=== PATIENT | female | born 1940 | race Caucasian/White ===

== ENCOUNTER 2016-09-25 18:43 | Emergency (ER) | payer MEDICARE ==
[~2016-09-25] VITALS: Ht 165.1 cm; Wt 96.4 kg
[~2016-09-25 18:43] MED LIST: ACET500T3 PO; ALLO100T PO; BETH25 PO; DOCU100T9 PO; HYDR-3516 PO; INLYTA PO; LISI-519 PO; NOVO7030P2 SQ; OXYB5TAB10 PO; PANT40TA3 PO; PROM25TA5 PO; VENTAER INH; VERA1TAB9 PO
[2016-09-25] MEDS ORDERED: N7030SS SQ ×2 (18:56)
[2016-09-25 18:57] VITALS: BP 166/81; PULSE 90; RESP 18; TEMP 98.4; O2SAT 97
[2016-09-25] MEDS ORDERED: ACETAMINOPHEN/HYDROcodone 325 MG/5 MG TAB PO ONE (19:15)
[2016-09-25] MEDS ORDERED: SODIUM CHLORIDE 0.9% FLUSH 5 ML FLUSH IVF PRN (19:15)
[2016-09-25] MEDS ORDERED: HYDR-3533 PO (20:47)
--- NOTE | 2016-09-25 20:48 | PD ---
HPI Chief Complaint: Fall Time Seen by Provider: 18:58 Travel History International Travel<30 days: No Contact w/Intl Traveler<30days: No Traveled to known affect area: No History of Present Illness HPI 76-year-old female arrives by EMS. She experienced a mechanical fall while walking up a concrete stairway. She landed striking her right face, right ribs and left knee onto the stairway. No loss of consciousness reported. She has constant moderate pain in the right face in the region of the right ribs. Both are more painful with palpation. The patient was unable stand after falling and cried out for help. She denies loss of consciousness. She denies anticoagulant use. Injury occurred about 45 minutes prior to ER evaluation. PFSH Past Medical History Hx Anticoagulant Therapy: No Arthritis: No Asthma: No Autoimmune Disease: No Blood Disorders: No Anxiety: No Depression: No Heart Rhythm Problems: No Cancer: Yes (SKIN CANCER , kidney cancer, and spots on the lungs now) Cardiovascular Problems: Yes High Cholesterol: No Chemotherapy: Yes (oral tablets ) Chest Pain: No Congestive Heart Failure: No COPD: No Cerebrovascular Accident: No Diabetes: Yes Patient Takes Glucophage: No Diminished Hearing: No Endocrine: Yes Gastrointestinal Disorders: Yes (colostomy placed 2014 ) GERD: No Glaucoma: No Genitourinary: Yes (left kidney removed 2014, ) Headaches: Yes (SINUS HEADACHE) Hepatitis: No Hiatal Hernia: No Hypertension: Yes Immune Disorder: No Implanted Vascular Access Dvce: Yes Kidney Stones: No Medical other: Yes (PSORIASIS & ECZEMA ) Musculoskeletal: Yes (right shoulder pain ) Neurologic: No Psychiatric: No Reproductive: No Respiratory: No Immunizations Current: Yes Migraines: No Myocardial Infarction: No Radiation Therapy: No Renal Failure: No Seizures: No Sickle Cell Disease: No Sleep Apnea: No Thyroid Disease: No Ulcer: No Menopausal: Yes Tubal Ligation: Yes Past Surgical History Abdominal Surgery: Yes (colostomy MAY 2015, hernia repair) AICD: No Appendectomy: Yes (1970) Arteriovenous Shunt: No Body Medical Devices: NONE Cardiac Surgery: Yes (TUMOR EXCISED RIGHT CAROTID ARTERY REMV'D & LYMPH NODES @ AGE 47 ) Cholecystectomy: No Ear Surgery: No Endocrine Surgery: No Eye Surgery: No Genitourinary Surgery: Yes (L NEPHRECTOMY) Gynecologic Surgery: Yes (tubal ligation ) Hysterectomy: No Insulin Pump: No Joint Replacement: No Neurologic Surgery: No Oral Surgery: Yes (dentures ) Pacemaker: No Thoracic Surgery: Yes (LEFT BREAST BX NOV 2014 BENIGN) Other Surgery: Yes (BENIGN breast cyst, hernia repain, kidney left removed, colostomy) Social History Alcohol Use: No Tobacco Use: No Substance Use: No Allergies-Medications (Allergen,Severity, Reaction): Coded Allergies: Adhesives (Verified Allergy, Severe, Rash, 09/20/16) OK TO USE PAPER TAPE Latex (Verified Allergy, Severe, Itching, 09/20/16) Sulfa (Verified Allergy, Severe, Nausea/Vomiting, 09/20/16) Penicillin (Verified Allergy, Unknown, Hives, 09/20/16) *MDRO Multi-Drug Resistant Organism (Verified Adverse Reaction, Unknown, ) MRSA (urine) 05/2015 ESBL+E.Coli urine 11/2015 & 06/10/16 Reported Meds & Prescriptions Reported Meds & Active Scripts Active Lortab (Hydrocodone-Acetaminophen) 5-325 Mg Tab 1-2 Tab PO Q6H PRN Ditropan (Oxybutynin Chloride) 5 Mg Tab 5 Mg PO Q12HR Hydrocodone-Acetaminophen 5-325 mg Tab 1 Tab PO Q4H PRN Urecholine (Bethanechol Chloride) 25 Mg Tab 25 Mg PO Q8HR Pantoprazole (Pantoprazole Sodium) 40 Mg Tab 40 Mg PO DAILY Phenergan (Promethazine HCl) 25 Mg Tab 25 Mg PO Q6HR PRN Reported Novolin 70/30 Inj (Insulin Human Isoph/Insulin Regular) 1,000 Units/10 Ml Inj 62 Units SQ DAILY@1600 Novolin 70/30 Inj (Insulin Human Isoph/Insulin Regular) 1,000 Units/10 Ml Inj 60 Units SQ DAILYAC [inlyta] 5 Mg PO BID Ventolin Hfa 18 GM Inh (Albuterol Sulfate) 90 Mcg/Act Aer 2 Puff INH Q4-6H PRN Lisinopril 5 Mg Tab 5 Mg PO DAILY Verapamil ER (Verapamil HCl) 120 Mg Tab 240 Mg PO DAILY Docusate Sodium 100 Mg Tab 100 Mg PO DAILY Allopurinol 100 Mg Tab 100 Mg PO DAILY Acetaminophen 500 Mg Tab 500 Mg PO BID Review of Systems Except as stated in HPI: all other systems reviewed are Neg Physical Exam Narrative GENERAL: 76 yo F, pleasant, WNWD, moderate distress SKIN: Warm and dry. HEAD: Atraumatic. Normocephalic. R face swelling/ecchymosis/TTP. EYES: Pupils equal and round. No scleral icterus. No injection or drainage. ENT: No nasal bleeding or discharge. Mucous membranes pink and moist. NECK: Trachea midline. No JVD. CARDIOVASCULAR: Regular rate and rhythm. RESPIRATORY: No accessory muscle use. Clear to auscultation. Breath sounds equal bilaterally. Minimal TTP R chest wall. GASTROINTESTINAL: Abdomen soft, non-tender, nondistended. Hepatic and splenic margins not palpable. MUSCULOSKELETAL: Extremities without clubbing, cyanosis, or edema. No obvious deformities. Ecchymosis about L knee, flexion/extension normal. 2+ DP bilaterally. R wrist TTP without gross deformity. Minimal abrasion approx 2cm max diameter along R dorsal/radial forearm. NEUROLOGICAL: Awake and alert. No obvious cranial nerve deficits. Motor grossly within normal limits. Five out of 5 muscle strength in the arms and legs. Normal speech. PSYCHIATRIC: Appropriate mood and affect; insight and judgment normal. Data Data Last Documented VS Vital Signs Date Time Temp Pulse Resp B/P Pulse Ox O2 Delivery O2 Flow Rate FiO2 09/25/16 18:57 98.4 90 18 166/81 97 VS reviewed Orders Chest, Single Ap (09/25/16 19:09) Ct Brain W/O Iv Contrast(Rout) (09/25/16 19:09) Ct Facial Bones W/O Iv Cont (09/25/16 19:09) Iv Access Insert/Monitor (09/25/16 19:09) Ecg Monitoring (09/25/16 19:09) Oximetry (09/25/16 19:09) Oxygen Administration (09/25/16 19:09) Sodium Chloride 0.9% Flush (Ns Flush) (09/25/16 19:15) Knee, Complete (4vws) (09/25/16 19:09) Wrist, Complete (Siq7mlq) (09/25/16 19:09) ^ Wound Care (09/25/16 19:09) Acetamin-Hydrocod 325-5 Mg (Atkins 5-325 (09/25/16 19:15) Resp Incentive Spirometry (09/25/16 ) MDM Medical Decision Making Medical Screen Exam Complete: Yes Emergency Medical Condition: Yes Medical Record Reviewed: Yes Differential Diagnosis R wrist fx, L knee fx, ribs fx, facial bone fx, ich, skull fx Narrative Course Last Impressions Wrist X-Ray 09/25/161908 Signed Impressions: Service Date/Time: Sunday, September 25, 2016 20:10 - CONCLUSION: No acute abnormality is identified. Nikolas Loredo MD Maxillofacial CT 09/25/161908 Signed Impressions: Service Date/Time: Sunday, September 25, 2016 20:25 - CONCLUSION: 1. Focal soft-tissue swelling in the superficial right anterior cheek region. 2. No acute bony injury is seen. Nikolas Loredo MD Knee X-Ray 09/25/161908 Signed Impressions: Service Date/Time: Sunday, September 25, 2016 20:14 - CONCLUSION: No acute disease. Nikolas Loredo MD Head CT 09/25/161908 Signed Impressions: Service Date/Time: Sunday, September 25, 2016 20:25 - CONCLUSION: 1. 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 2. Nothing acute. Urban David MD Chest X-Ray 09/25/161908 Signed Impressions: Service Date/Time: Sunday, September 25, 2016 20:08 - CONCLUSION: 1. No acute abnormality is seen. 2. Bilateral lung masses are seen. Nikolas Loredo MD The patient is resting comfortably and feels better, is alert and in no distress. The patients results and examination findings were discussed. The repeat examination is unremarkable and benign. The history, exam, diagnostic testing, and current condition do not suggest any significant pathology to warrant further testing, continued ED treatment, admission, or surgical evaluation at this point. The vital signs have been stable. The patient does not have uncontrollable pain, intractable vomiting, or other significant symptoms. The patient's condition is stable and appropriate for discharge. The patient will pursue further outpatient evaluation with a primary care physician or other designated or consulting physician as indicated in the discharge instructions. The patient expressed understanding and was agreeable with this plan. Diagnosis Primary Impression: Fall Qualified Code: W19.XXXA - Fall, initial encounter Additional Impressions: Facial contusion Qualified Code: S00.83XA - Facial contusion, initial encounter Contusion of wrist, right Contusion of knee, left ABRASION OF RIGHT WRIST, INITIAL ENCOUNTER Referrals: Remy Cano MD 2 days Additional Instructions: You have a choice when it comes to health care, and we are glad that you chose [facility]. Hopefully, we have met your expectations on today's visit. You are welcome to return to [facility] at any time, as we are committed to meeting the health care needs of our community. Med/Other Pt SpecificInfo: Prescription(s) given Scripts Hydrocodone-Acetaminophen (Lortab)5-325 Mg Tab1-2 Tab PO Q6H PRN (PAIN SCALE 6 TO 10) #20 TAB Ref 0 Prov:Jv Weems MD 09/25/16 Disposition: 01 DISCHARGE HOME Condition: Stable Jv Weems MD Sep 25, 2016 20:47
--- NOTE | 2016-09-25 21:02 | RADRPT ---
EXAM DATE/TIME: 09/25/2016 20:08 [facility] COMPARISON: CT NEEDLE BIOPSY LUNG, LEFT, June 21, 2016, 17:52. CHEST SINGLE AP, Decem 2015, 5:41. INDICATIONS : Patient fell today. Right axillary pain. MEDICAL HISTORY : None. SURGICAL HISTORY : None. ENCOUNTER: Initial ACUITY: 1 day PAIN SCORE: 10/10 LOCATION: Chest FINDINGS: The heart size is enlarged. The lungs are free of focal consolidation. There is a possible mass see n in the right upper lung. There also appears to be a mass in the superomedial left upper lung. The patient has had a lung biopsy on the left side performed in the past. CONCLUSION: 1. No acute abnormality is seen. 2. Bilateral lung masses are seen. Nikolas Loredo MD on September 25, 2016 at 20:56 Board Certified Radiologist. This report was verified electronically.
--- NOTE | 2016-09-25 21:08 | RADRPT ---
EXAM DATE/TIME: 09/25/2016 20:25 [facility] COMPARISON: No previous studies available for comparison. INDICATIONS : Trauma; fall. RADIATION DOSE: 35.64 CTDIvol (mGy) MEDICAL HISTORY : Hypertension. Diabetes mellitus type 2. renal CA. SURGICAL HISTORY : Nephrectomy, left. sinus surgery ENCOUNTER: Initial ACUITY: 1 day PAIN SCALE: 7/10 LOCATION: cranial TECHNIQUE: Multiple contiguous axial images were obtained of the head. Using automated exposure control and adj ustment of the mA and/or kV according to patient size, radiation dose was kept as low as reasonably a chievable to obtain optimal diagnostic quality images. FINDINGS: CEREBRUM: The ventricles are normal for age. Periventricular and deep white matter tract areas of diminished a ttenuation are characteristic of moderate to severe small vessel ischemic examination. No evidence of midline shift, mass lesion, hemorrhage or acute infarction. No extra-axial fluid collections are se en. POSTERIOR FOSSA: The cerebellum and brainstem are intact. The 4th ventricle is midline. The cerebellopontine angle i s unremarkable. EXTRACRANIAL: The visualized portion of the orbits is intact. Findings of prior sinus surgery SKULL: The calvaria is intact. No evidence of skull fracture. CONCLUSION: 1. 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 2. Nothing acute. Urban David MD on September 25, 2016 at 21:04 Board Certified Radiologist. This report was verified electronically.
--- NOTE | 2016-09-25 21:11 | RADRPT ---
EXAM DATE/TIME: 09/25/2016 20:14 [facility] COMPARISON: No previous studies available for comparison. INDICATIONS : Patient fell today and complains of left knee pain. Left knee laceration in area of patella. MEDICAL HISTORY : None. SURGICAL HISTORY : None. ENCOUNTER: Initial ACUITY: 1 day PAIN SCORE: 10/10 LOCATION: Left Knee FINDINGS: Four view examination of the left knee demonstrates no evidence of fracture or dislocation. The deep cular surfaces are intact. The suprapatellar soft tissues have a normal configuration. The bones are osteopenic. CONCLUSION: No acute disease. Nikolas Loredo MD on September 25, 2016 at 21:09 Board Certified Radiologist. This report was verified electronically.
--- NOTE | 2016-09-25 21:13 | RADRPT ---
EXAM DATE/TIME: 09/25/2016 20:10 [facility] COMPARISON: No previous studies available for comparison. INDICATIONS : Patient fell today and complains or right wrist pain. Laceration to carpal area. MEDICAL HISTORY : None. SURGICAL HISTORY : None. ENCOUNTER: Initial ACUITY: 1 day PAIN SCORE: 10/10 LOCATION: Right wrist FINDINGS: The bones are osteopenic. A definite fracture is not clearly identified. There appears to be some h ypertrophic change at the 3rd metacarpal head. The bones appear somewhat osteopenic. A foreign body is not seen. CONCLUSION: No acute abnormality is identified. Nikolas Loredo MD on September 25, 2016 at 21:04 Board Certified Radiologist. This report was verified electronically.
--- NOTE | 2016-09-25 21:17 | RADRPT ---
EXAM DATE/TIME: 09/25/2016 20:25 [facility] COMPARISON: No previous studies available for comparison. INDICATIONS : Trauma; fall. Right side cheek swelling and bruising. RADIATION DOSE: 59.80 CTDIvol (mGy) MEDICAL HISTORY : Hypertension. Diabetes mellitus type 2. Renal CA SURGICAL HISTORY : Nephrectomy, left. Sinus surgery ENCOUNTER: Initial ACUITY: 1 day PAIN SCORE: 7/10 LOCATION: Right facial TECHNIQUE: Volumetric scanning of the facial bones was performed. Using automated exposure contr ol and adjustment of the mA and/or kV according to patient size, radiation dose was kept as low as re asonably achievable to obtain optimal diagnostic quality images. FINDINGS: No acute fracture is seen. The patient does appear to have postsurgical change in the medial superio r aspects of the maxillary sinuses bilaterally. There has also been removal of the middle turbinates . The orbits appear intact. There is focal soft-tissue swelling identified at the right anterior ch deering measuring 2.2 x 1.3 x 1.8 cm. CONCLUSION: 1. Focal soft-tissue swelling in the superficial right anterior cheek region. 2. No acute bony injury is seen. Nikolas Loredo MD on September 25, 2016 at 21:02 Board Certified Radiologist. This report was verified electronically.
== END 2016-09-25 22:23 | disposition home or self-care (01) ==
LOC: NEPE 18:43
DX: S00.83XA Contusion of other part of head, initial encounter (principal); S60.211A Contusion of right wrist, initial encounter; S80.02XA Contusion of left knee, initial encounter; S60.811A Abrasion of right wrist, initial encounter; R07.81 Pleurodynia; E11.9 Type 2 diabetes mellitus without complications; I10 Essential (primary) hypertension; W10.8XXA Fall (on) (from) other stairs and steps, initial encounter; Z79.4 Long term (current) use of insulin; Z86.79 Personal history of other diseases of the circulatory system; Z87.19 Personal history of other diseases of the digestive system; Z87.448 Personal history of other diseases of urinary system; Z87.2 Personal history of diseases of the skin and subcutaneous tissue; Z87.39 Personal history of other diseases of the musculoskeletal system and connective tissue; Z85.828 Personal history of other malignant neoplasm of skin; Z85.528 Personal history of other malignant neoplasm of kidney
CPT/HCPCS: 70450; 70486; 71010; 73110; 73564; 94150

== ENCOUNTER 2016-09-28 22:34 | Emergency (ER) | payer MEDICARE ==
[~2016-09-28 22:34] MED LIST changes: +HYDR-3533 PO; +N7030SS SQ; -NOVO7030P2 SQ
[2016-09-28 22:36] VITALS: BP 166/83; PULSE 107; RESP 18; TEMP 97.8; O2SAT 97
== END 2016-09-28 23:40 | disposition left against medical advice (07) ==
LOC: NED 22:34
DX: R68.89 Other general symptoms and signs (principal)
CPT/HCPCS: 99281

== ENCOUNTER 2016-10-04 13:24 | Inpatient (IN) | payer MEDICARE ==
[~2016-10-04] VITALS: Ht 165.1 cm; Wt 97.1 kg
[~2016-10-04 13:24] MED LIST changes: -HYDR-3533 PO; -PROM25TA5 PO
[2016-10-12] MEDS ORDERED: BETH25 PO (09:10)
[2016-10-12] MEDS ORDERED: CRANCAP2 PO (09:10)
[2016-10-12] MEDS ORDERED: MACR100C3 PO (09:10)
[2016-10-12] MEDS ORDERED: CYCL1TAB29 PO (09:10)
[2016-10-12] MEDS ORDERED: LOSA50TA PO (09:10)
[2016-10-19] MEDS: D5-NS + KCL 20 MEQ INJ 1,000 ML IV SCH ×2 (00:15→17:47)
[2016-10-19] MEDS ORDERED: NEOSTIGMINE 3 MG/3 ML SYR IV ONE (12:00)
[2016-10-19] MEDS ORDERED: ONDANSETRON HCL 4 MG/2 ML VIAL IV PUSH ONE (12:00)
[2016-10-19] MEDS ORDERED: PROPOFOL 200 MG/20 ML AMP IV ONE (12:00)
[2016-10-19 12:36] VITALS: BP 152/77; PULSE 91; RESP 18; TEMP 98.9; O2SAT 99
[2016-10-19] MEDS ORDERED: BUPIVACAINE HCL PF 0.5% 30 ML VIAL ONE (12:49)
[2016-10-19] MEDS ORDERED: ceFAZolin INJ 1,000 MG VIAL ONE (13:00)
[2016-10-19] MEDS ORDERED: ALVIMOPAN 12 MG CAPSULE ONE (13:00)
[2016-10-19] MEDS ORDERED: LACTATED RINGER'S 1000 ML INJ 1,000 ML ONE (13:00)
[2016-10-19] MEDS ORDERED: metroNIDAZOLE 500 MG INJ 100 ML IV ONE (13:00)
[2016-10-19] MEDS ORDERED: SODIUM CHLORIDE 0.9% INJ 100 ML ONE (13:00)
[2016-10-19] MEDS ORDERED: METRONIDAZOLE 500 MG/100 ML ISONTONIC SOLN IV SCH (13:15)
[2016-10-19] MEDS ORDERED: ALVIMOPAN 12 MG CAPSULE - On Call PO SCH (13:15)
[2016-10-19] MEDS ORDERED: DEXT 5%-NACL 0.9% 1000 ML INJ 1,000 ML IV SCH (13:15)
[2016-10-19] MEDS ORDERED: LACTATED RINGER'S 1000 ML IV SCH (13:15)
[2016-10-19] MEDS ORDERED: METOPROLOL TARTRATE 25 MG TAB PO PRN (13:15)
[2016-10-19] MEDS ORDERED: SODIUM CHLORID 0.9% 500 ML IV SCH (13:15)
[2016-10-19] MEDS ORDERED: ceFAZolin 1,000 MG/NS 100 ML IV SCH ×2 (13:15)
[2016-10-19] MEDS ORDERED: INSULIN HUMAN REGULAR 1,000 UNITS/10 ML VIAL SQ PRN (13:15)
[2016-10-19 13:24] LABS: BACTERIA, URINE MANY /hpf; BLOOD, URINE MOD (NEG); GLUCOSE,URINE NEG (NEG); KETONE, URINE 10 mg/dL (NEG); MUCUS URINE FEW /lpf (OCC); PH, URINE 5.5 (5.0-8.5); SQUAMOUS EPITHELIAL CELL URINE 3 /hpf (0-5); TRANSITIONAL EPI CELLS, URINE <1 /hpf; URINE COLOR YELLOW (YELLW/STRAW)
[2016-10-19 13:25] LABS: COMMENT (UR) CULTURE INDICATED; CULTURE IF INDICATED CULTURE INDICATED; NITRITE,URINE POS (NEG)
--- NOTE | 2016-10-19 13:32 | PD.HP.UP ---
H&P Update Note The Pre-Admit History and Physical Examination regarding the above named patient was reviewed (including, but not limited to, vital signs, heart, lungs, co-morbid conditions), and upon re-examination it is noted that: the patient's condition has not significantly changed since the last examination. Alen Parikh MD Oct 19, 2016 13:32
[2016-10-19] MEDS ORDERED: MIDAZOLAM HCL 2 MG/2 ML VIAL ONE (14:00)
[2016-10-19] MEDS ORDERED: methylPREDNISolone SOD SUCC 125 MG/2 ML VIAL ONE (14:00)
[2016-10-19] MEDS ORDERED: ACETAMINOPHEN 1000 MG/100 ML VIAL IV ONE (14:04)
[2016-10-19] MEDS ORDERED: FAMOTIDINE 20 MG/2 ML VIAL ONE (14:04)
[2016-10-19] MEDS ORDERED: fentaNYL CITRATE 250 MCG/5 ML AMP ONE ×2 (14:05→16:40)
[2016-10-19] MEDS ORDERED: ONDANSETRON HCL 4 MG/2 ML VIAL ONE (14:05)
--- NOTE | 2016-10-19 15:11 | PD.OP ---
Operative Report Colovesical fistula Postoperative Diagnosis: Colovesical fistula Procedure: Cystoscopy with placement of right ureteral catheter Anesthesia: Gen. endotracheal tube Surgeon: Fito León Endoscopy Tech(s): None Operation and Findings: And she needs 75 year-old female with history of diverticular disease who developed a colovesical fistula. She also underwent a left nephrectomy and assisted for left renal cell carcinoma. She scheduled to undergo exploratory laparotomy and closure of colovesical fistula. Request for made by Dr. Parikh for placement of right ureteral catheter and cystoscopy. Patient was brought to the operating room and identified by myself as Rosalie French. She was prepped and draped in usual sterile fashion, received preprocedure antibiotics, general endotracheal tube anesthesia was administered. 22 Chadian cystoscope was inserted in the bladder. Mccullough cystoscopy showed a lot of debris within the bladder. The right ureteral orifice was identified and a 5 Chadian open-ended catheter was inserted into the right ureteral orifice. Initially, the open- ended catheter would not advance. An 035 sensor wire was then passed through the open-ended catheter up into the kidney. The catheter was advanced over the wire and putting good position. Alexander catheter was inserted and the 5 Chadian opening catheter was secured to the Alexander catheter. She tolerated procedure well. Fito León DO Oct 19, 2016 15:11
[2016-10-19] MEDS ORDERED: SODIUM CHLORIDE 0.9% FLUSH 5 ML FLUSH IVF PRN (16:30)
[2016-10-19] MEDS ORDERED: ALBUTEROL SULFATE 90 MCG/ACT HFA 8 GM INHALER INH PRN (16:30)
[2016-10-19] MEDS ORDERED: BENZOCAINE 6 MG/MENTHOL 10 MG LOZENGE SUCK-ON PRN (16:30)
[2016-10-19] MEDS: PCA - TOTAL MG MORPHINE DELIVERED PER SHIFT SCH ×2 (16:30)
[2016-10-19] MEDS ORDERED: POTASSIUM CHLOR 40 MEQ PREMIX 100 ML IV PRN (16:30)
[2016-10-19] MEDS ORDERED: ENALAPRILAT 2.5 MG/2 ML VIAL IV PRN (16:30)
[2016-10-19] MEDS ORDERED: ACETAMINOPHEN/HYDROcodone 325 MG/5 MG TAB PO PRN (16:30)
[2016-10-19] MEDS ORDERED: POTASSIUM CHLOR 20 MEQ PREMIX 100 ML IV PRN (16:30)
[2016-10-19] MEDS ORDERED: ENALAPRILAT 1.25 MG/ML VIAL IV PRN (16:30)
[2016-10-19] MEDS ORDERED: NALOXONE HCL 0.4 MG/ML AMP IV PRN (16:30)
[2016-10-19] MEDS ORDERED: KETOROLAC TROMETHAMINE 30 MG/ML (IVP) VIAL IVP PRN (16:30)
[2016-10-19] MEDS ORDERED: Post-op Orders (for Pharmacy) MISC XX ONE (16:30)
[2016-10-19] MEDS ORDERED: *morphine SULFATE 8 MG/ML PERIprocedure ONLY ONE ×2 (16:35→16:46)
[2016-10-19] MEDS ORDERED: MORPHINE SULFATE 4 MG/ML INJ ONE (16:40)
[2016-10-19] MEDS ORDERED: *HYDROmorphone PF 1 MG VIAL PERIprocedural Use ONLY ONE ×4 (16:50→18:59)
[2016-10-19] MEDS ORDERED: DO NOT ADM ANY ANTICOAGULANT DRUGS XX PRN (17:15)
[2016-10-19] MEDS: PANTOPRAZOLE SODIUM 40 MG VIAL IVP SCH (17:37)
[2016-10-19] MEDS: MORPHINE SULFATE 30 MG/30 ML PCA IV SCH (17:47)
[2016-10-19] MEDS ORDERED: *ONDANSETRON 4 MG VIAL PERIprocedural Use ONLY ONE (17:49)
[2016-10-19] MEDS: METOCLOPRAMIDE HCL 10 MG/2 ML VIAL IVS SCH (21:00)
[2016-10-19] MEDS ORDERED: INLYTA 5 MG PO SCH (21:00)
[2016-10-19] MEDS: BETHANECHOL CHL 25 MG TAB PO SCH (21:45)
[2016-10-19] MEDS: NITROFURANTOIN MONOHYD MACROCR 100 MG CAP PO SCH (21:45)
[2016-10-19] MEDS: OXYBUTYNIN CHLORIDE 5 MG TAB PO SCH (21:45)
[2016-10-19] MEDS: CYCLOBENZAPRINE HCL 10 MG TAB PO SCH (21:45)
[2016-10-19] MEDS: VERAPAMIL HCL 240 MG SUSTAINED RELEASE TAB PO SCH (21:45)
[2016-10-19] MEDS ORDERED: INSULIN HUMAN REGULAR 1,000 UNITS/10 ML VIAL ONE (21:50)
[2016-10-19] MEDS: MEDIUM DOSE INSULIN NOVOLIN REGULAR SUPPLEMENTAL SCALE SQ SCH (21:52)
[2016-10-19] MEDS: metroNIDAZOLE 500 MG INJ 100 ML IV SCH (22:07)
[2016-10-19] MEDS ORDERED: DEXTROSE 50% IN WATER 50 ML VIAL(D50) IV PUSH PRN (22:15)
[2016-10-19] MEDS ORDERED: GLUCAGON 1 MG/ML VIAL OTHER PRN (22:15)
[2016-10-19] MEDS: SODIUM CHLORIDE 0.9% FLUSH 5 ML FLUSH IVF SCH (22:30)
[2016-10-20] MEDS: D5-NS + KCL 20 MEQ INJ 1,000 ML IV SCH ×2 (00:19→06:27)
[2016-10-20 03:36] VITALS: O2SAT 98
[2016-10-20] MEDS: PCA - TOTAL MG MORPHINE DELIVERED PER SHIFT SCH ×2 (06:00→21:51)
[2016-10-20] MEDS: metroNIDAZOLE 500 MG INJ 100 ML IV SCH ×2 (06:00→14:18)
[2016-10-20] MEDS: MEDIUM DOSE INSULIN NOVOLIN REGULAR SUPPLEMENTAL SCALE SQ SCH ×4 (06:44→22:39)
[2016-10-20 07:31] LABS: AUTOMATED NEUTROPHIL # 7.4 TH/MM3 (1.8-7.7); BASOPHIL % 0.1 % (0.0-2.0); HEMATOCRIT 30.9 % (35.0-46.0); HEMO FLAGS DIFF FINAL; LYMPH % 3.6 % (9.0-44.0); LYMPHOCYTE # 0.4 TH/MM3 (1.0-4.8); MEAN CELL VOLUME 88.6 FL (80.0-100.0); MEAN CORPUSCULAR HEMOGLOBIN 27.4 PG (27.0-34.0); MEAN CORPUSCULAR HGB CONC 30.9 % (32.0-36.0); MONO % 19.5 % (0.0-8.0); NEUT % 76.8 % (16.0-70.0); PLATELET COUNT 149 TH/MM3 (150-450); RED BLOOD COUNT 3.49 MIL/MM3 (4.00-5.30); RED CELL DISTRIBUTION WIDTH 18.9 % (11.6-17.2); WHITE BLOOD COUNT 9.7 TH/MM3 (4.0-11.0)
[2016-10-20 07:52] LABS: BICARBONATE 22.7 MEQ/L (21.0-32.0); POTASSIUM 5.7 MEQ/L (3.5-5.1)
[2016-10-20] MEDS: PANTOPRAZOLE SODIUM 40 MG VIAL IVP SCH (08:33)
[2016-10-20] MEDS: METOCLOPRAMIDE HCL 10 MG/2 ML VIAL IVS SCH ×2 (08:54→21:38)
[2016-10-20 08:56] VITALS: O2SAT 99
[2016-10-20] MEDS: BETHANECHOL CHL 25 MG TAB PO SCH ×2 (09:00→21:38)
[2016-10-20] MEDS: ALLOPURINOL 100 MG TAB PO SCH (09:00)
[2016-10-20] MEDS: NITROFURANTOIN MONOHYD MACROCR 100 MG CAP PO SCH ×2 (09:00→21:38)
[2016-10-20] MEDS: ALVIMOPAN 12 MG CAPSULE - Post-op dosing PO SCH ×2 (09:00→21:38)
[2016-10-20] MEDS: OXYBUTYNIN CHLORIDE 5 MG TAB PO SCH ×2 (09:00→21:38)
[2016-10-20] MEDS: PANTOPRAZOLE SOD 40 MG DELAYED RELEASE TAB PO SCH (09:00)
[2016-10-20] MEDS: LOSARTAN 50 MG TAB PO SCH (09:00)
[2016-10-20] MEDS: CYCLOBENZAPRINE HCL 10 MG TAB PO SCH ×2 (09:00→21:38)
[2016-10-20] MEDS: DEXT 5%-NACL 0.9% 1000 ML INJ 1,000 ML IV SCH (09:29)
[2016-10-20] MEDS: SODIUM CHLORIDE 0.9% FLUSH 5 ML FLUSH IVF SCH ×2 (09:31→21:00)
[2016-10-20] MEDS: MORPHINE SULFATE 30 MG/30 ML PCA IV SCH (13:11)
[2016-10-20 18:00] VITALS: BP 133/55; PULSE 87; RESP 19; TEMP 97.7; O2SAT 93
[2016-10-20] MEDS: ONDANSETRON HCL 4 MG/2 ML VIAL IV PRN (18:51)
[2016-10-20 20:00] VITALS: BP 139/62; PULSE 91; RESP 20; TEMP 98.9; O2SAT 91
[2016-10-20] MEDS ORDERED: ALVIMOPAN 12 MG CAPSULE PO SCH (21:00)
[2016-10-20] MEDS: VERAPAMIL HCL 240 MG SUSTAINED RELEASE TAB PO SCH (21:00)
--- NOTE | 2016-10-20 23:06 | HHI.PR ---
Subjective Remarks C/R Surg POD # 1 afebriel, VSS UO fair stoma viable Objective - Vital Signs Date Time Temp Pulse Resp B/P Pulse Ox O2 Delivery O2 Flow Rate FiO2 10/20/16 21:51 16 10/20/16 20:00 98.9 91 139/62 91 10/20/16 17:40 Nasal Cannula 2 Result Diagram: 10/20/1617 10/20/16 0717 Objective Remarks PE alert Abd - soft, wound dry, stoma pink A/P Assessment and Plan Imp: stable, OOB decr IVF tx to floor Alen Parikh MD Oct 20, 2016 23:06
[2016-10-21] VITALS (7 sets, daily range): BP systolic 108–172; BP diastolic 53–66; PULSE 78–87; RESP 17–19; TEMP 96.7–99.6; O2SAT 85–100
[2016-10-21] MEDS: DEXT 5%-NACL 0.9% 1000 ML INJ 1,000 ML IV SCH (00:09)
[2016-10-21 05:45] LABS: AUTOMATED NEUTROPHIL # 5.2 TH/MM3 (1.8-7.7); BASOPHIL % 0.2 % (0.0-2.0); EOSINOPHIL % 0.2 % (0.0-4.0); HEMATOCRIT 27.8 % (35.0-46.0); HEMO FLAGS DIFF FINAL; LYMPH % 6.7 % (9.0-44.0); LYMPHOCYTE # 0.5 TH/MM3 (1.0-4.8); MEAN CORPUSCULAR HEMOGLOBIN 28.7 PG (27.0-34.0); MEAN CORPUSCULAR HGB CONC 32.6 % (32.0-36.0); MONO % 19.5 % (0.0-8.0); NEUT % 73.4 % (16.0-70.0); PLATELET COUNT 128 TH/MM3 (150-450); RED BLOOD COUNT 3.16 MIL/MM3 (4.00-5.30); WHITE BLOOD COUNT 7.1 TH/MM3 (4.0-11.0)
[2016-10-21] MEDS: ONDANSETRON HCL 4 MG/2 ML VIAL IV PRN (06:03)
[2016-10-21] MEDS: PCA - TOTAL MG MORPHINE DELIVERED PER SHIFT SCH ×3 (06:07→20:07)
[2016-10-21] MEDS: MEDIUM DOSE INSULIN NOVOLIN REGULAR SUPPLEMENTAL SCALE SQ SCH ×4 (06:16→20:19)
[2016-10-21 06:25] LABS: POTASSIUM 5.2 MEQ/L (3.5-5.1)
--- NOTE | 2016-10-21 07:34 | HHI.PR ---
Subjective Remarks C/R Surg POD # 2 afebrile, VSS UO good stoma viable JASON min Objective - Vital Signs Date Time Temp Pulse Resp B/P Pulse Ox O2 Delivery O2 Flow Rate FiO2 10/21/16 06:07 18 10/21/16 04:34 96.9 78 108/53 93 10/20/16 17:40 Nasal Cannula 2 Result Diagram: 10/21/16 0453 10/21/16 0453 Objective Remarks PE alert, c/o nausea Abd - soft, wound dry, stoma pink A/P Assessment and Plan Imp: stable, OOB/PT decr IVF leave Alen Garnica MD Oct 21, 2016 07:34
[2016-10-21] MEDS ORDERED: MISCELLANEOUS PHARMACY INFORMATION XX PRN (08:00)
[2016-10-21] MEDS ORDERED: ASP: Path resistant to other antimicrobials, culture proven XX PRN (08:00)
[2016-10-21] MEDS ORDERED: ASP: Documented allergy to Penicillins or Cephalosporins XX PRN (08:00)
[2016-10-21] MEDS: BETHANECHOL CHL 25 MG TAB PO SCH ×2 (08:35→20:11)
[2016-10-21] MEDS: ALLOPURINOL 100 MG TAB PO SCH (08:35)
[2016-10-21] MEDS: ALVIMOPAN 12 MG CAPSULE - Post-op dosing PO SCH ×2 (08:35→20:09)
[2016-10-21] MEDS: CYCLOBENZAPRINE HCL 10 MG TAB PO SCH ×2 (08:35→20:10)
[2016-10-21] MEDS: NITROFURANTOIN MONOHYD MACROCR 100 MG CAP PO SCH ×2 (08:35→20:12)
[2016-10-21] MEDS: PANTOPRAZOLE SOD 40 MG DELAYED RELEASE TAB PO SCH (08:35)
[2016-10-21] MEDS: OXYBUTYNIN CHLORIDE 5 MG TAB PO SCH ×2 (08:35→20:10)
[2016-10-21] MEDS: LOSARTAN 50 MG TAB PO SCH (08:35)
[2016-10-21] MEDS: PANTOPRAZOLE SODIUM 40 MG VIAL IVP SCH (08:35)
[2016-10-21] MEDS: SODIUM CHLORIDE 0.9% FLUSH 5 ML FLUSH IVF SCH ×2 (08:37→20:08)
[2016-10-21] MEDS: SODIUM CHLOR 0.45% 1000 ML INJ 1,000 ML IV SCH ×2 (08:44→20:06)
[2016-10-21] MEDS: ERTAPENEM INJ 1,000 MG in SODIUM CHLORIDE 0.9% INJ 100 ML IV SCH (09:03)
[2016-10-21 10:03] LABS: ALKALINE PHOSPHATASE 75 U/L (45-117); ALT (GPT) 8 U/L (10-53); ANION GAP 7 MEQ/L (5-15); AST (GOT) 14 U/L (15-37); BICARBONATE 23.1 MEQ/L (21.0-32.0); CHLORIDE 111 MEQ/L (98-107); GLOMERULAR FILTRATION RATE 34 ML/MIN (>89); POTASSIUM 5.1 MEQ/L (3.5-5.1); SODIUM (NA) 141 MEQ/L (136-145); TOTAL BILIRUBIN ADULT 0.4 MG/DL (0.2-1.0)
[2016-10-21 10:07] LABS: BLOOD UREA NITROGEN 18 MG/DL (7-18)
--- NOTE | 2016-10-21 11:38 | MP ---
cc: TAMIKA SINGH M.D. DATE OF SURGERY 10/19/2016 PREOPERATIVE DIAGNOSIS Colovesical fistula urosepsis PROCEDURE Exploratory laparotomy with proctosigmoidectomy and Rosemary pouch, omental flap. POSTOPERATIVE DIAGNOSIS 1. Colovesical fistula 2. Enterocutaneous fistula SURGEON Dr. Singh [employer] Dr. Anupam Mcnulty PROCEDURE The patient was placed in the spine position. After adequate general anesthesia, her legs were placed in the [place] stirrups and supported appropriately. The abdomen and perineum were then prepped with Betadine solution and draped in the usual sterile fashion. With Dr. Mcnulty's assistance, the abdomen was opened through a midline incision. Upon entering the abdominal cavity, adhesions to the parietal peritoneum were taken down. Exploration revealed a chronic inflammatory mass in the sigmoid colon which was stuck down to the left pelvic sidewall and the bladder. It also appeared to communicate with the lower part of the abdomen consistent with a colocutaneous fistula. Several loops of small bowel were stuck to the inflammatory mass. Two of these were gently teased off and mobilized. Further exploration revealed the proximal colon to be very dilated and full of stool all the around to the cecum. No obstruction was palpable. The small bowel was run from the ligament of Treitz down to the ileocecal valve and felt to be normal. The stomach and duodenum were normal. The liver had no palpable masses. Uterus and ovaries were appropriate for the patient's age. First, the sigmoid colon was mobilized medially by dividing along the white line of Toldt. The left ureter was visualized and preserved, although the left kidney had been previously taken. Dissection then proceeded up mobilizing the bowel to the diverting loop colostomy. The right retroperitoneal space was then opened and the bowel dissected off the presacral fascia. The right ureteral stent was carefully palpated and preserved. The pedicle for the superior hemorrhoidal vessels was then identified and divided between Milagros's obtaining hemostasis with Vicryl ties. The bowel was then mobilized off the presacral fascia. In the region of the fistula, the bowel was then divided, the inflammatory mass off the bladder dividing the fistula and the enterocutaneous fistulas well. A point in the proximal rectum was chosen and the mesorectum taken between electrocautery and Milagros clamps ligating the proximal ends with Vicryl ties. The bowel was then divided between a TA-60 stapler and a Saran clamp. The additional mesentery was taken up toward the colostomy and just distal to the loop colostomy, the bowel was divided again using the TA-60 stapler and a Saran clamp. The abdomen was then irrigated copiously with normal saline. Adequate hemostasis was achieved. The fistula to the bladder was curetted of chronic granulation tissue and a lot of fecal debris. The omentum was taken off the transverse colon and passed down the right gutter to fill the pelvis and fill the area of the fistula. Next, the area around the umbilical hernia was repaired reapproximating the fascia with a running 0-PDS suture. Similar parastomal hernia was closed with interrupted PDS sutures in a lateral to medial direction. At completion, the colostomy appeared to be patent and was viable. A Travis-Spaulding drain was placed down into the pelvis in the region of the fistula, brought up through a stab wound in the right lower quadrant and secured to the skin with a nylon suture. The midline incision was then closed anatomically using a #1 PDS suture to reapproximate the midline fascia. The subcutaneous tissues were irrigated copiously. In the area of the cutaneous fistula, the skin was debrided and the fascia cleansed of all inflammatory tissue. The upper pole of the incision was closed with a row of surgical janie. The lower pole was left open and packed with a damp saline soaked Kerlix gauze. The wound area washed with normal saline and dried, sterile dressing of Telfa and gauze applied. A new colostomy bag fitted over the previously formed colostomy. The patient tolerated the procedure quite well and was brought to recovery room in stable condition. The sponge and needle counts were correct at the end of the procedure. MD JULIO CESAR Tran/EL /9:31 AM /11:28 AM
[2016-10-21] MEDS: METOCLOPRAMIDE HCL 10 MG/2 ML VIAL IVS SCH ×2 (12:58→22:58)
[2016-10-21] MEDS: MORPHINE SULFATE 30 MG/30 ML PCA IV SCH (15:08)
[2016-10-21] MEDS: VERAPAMIL HCL 240 MG SUSTAINED RELEASE TAB PO SCH (20:11)
[2016-10-22] VITALS: BP 138/62; PULSE 75; RESP 19; TEMP 96; O2SAT 99
[2016-10-22] MEDS: MEDIUM DOSE INSULIN NOVOLIN REGULAR SUPPLEMENTAL SCALE SQ SCH ×4 (04:42→20:18)
[2016-10-22] MEDS: PCA - TOTAL MG MORPHINE DELIVERED PER SHIFT SCH ×3 (04:42→20:19)
[2016-10-22] MEDS: METOCLOPRAMIDE HCL 10 MG/2 ML VIAL IVS SCH ×3 (04:50→20:20)
[2016-10-22 08:00] VITALS: BP 124/64; PULSE 69; RESP 19; TEMP 96.3; O2SAT 97
[2016-10-22] MEDS: ERTAPENEM INJ 1,000 MG in SODIUM CHLORIDE 0.9% INJ 100 ML IV SCH (08:19)
[2016-10-22] MEDS: ALLOPURINOL 100 MG TAB PO SCH (08:20)
[2016-10-22] MEDS: ALVIMOPAN 12 MG CAPSULE - Post-op dosing PO SCH ×2 (08:20→20:18)
[2016-10-22] MEDS: CYCLOBENZAPRINE HCL 10 MG TAB PO SCH ×2 (08:20→20:18)
[2016-10-22] MEDS: BETHANECHOL CHL 25 MG TAB PO SCH ×2 (08:20→20:18)
[2016-10-22] MEDS: LOSARTAN 50 MG TAB PO SCH (08:20)
[2016-10-22] MEDS: SODIUM CHLORIDE 0.9% FLUSH 5 ML FLUSH IVF SCH ×2 (08:21→20:17)
[2016-10-22] MEDS: OXYBUTYNIN CHLORIDE 5 MG TAB PO SCH ×2 (08:25→20:18)
[2016-10-22] MEDS: NITROFURANTOIN MONOHYD MACROCR 100 MG CAP PO SCH ×2 (08:25→20:18)
[2016-10-22] MEDS: PANTOPRAZOLE SOD 40 MG DELAYED RELEASE TAB PO SCH (08:25)
[2016-10-22] MEDS: SODIUM CHLOR 0.45% 1000 ML INJ 1,000 ML IV SCH ×2 (08:26→20:20)
[2016-10-22] MEDS: PANTOPRAZOLE SODIUM 40 MG VIAL IVP SCH (08:26)
[2016-10-22 12:00] VITALS: BP 136/62; PULSE 78; RESP 16; TEMP 97.2; O2SAT 98
[2016-10-22 16:00] VITALS: BP 154/66; PULSE 86; RESP 22; TEMP 96.6; O2SAT 97
--- NOTE | 2016-10-22 17:08 | HHI.PR ---
Subjective Remarks C/R Surg POD # 3 afebrile, VSS UO good stoma viable, min function JASON min Objective - Vital Signs Date Time Temp Pulse Resp B/P Pulse Ox O2 Delivery O2 Flow Rate FiO2 10/22/16 16:00 96.6 86 22 154/66 97 10/21/16 12:08 21 10/20/16 17:40 Nasal Cannula 2 Result Diagram: 10/21/16 0453 10/21/16 0913 Objective Remarks PE alert, less nausea Abd - soft, wound dry, red around umbilicus, stoma pink A/P Assessment and Plan Imp: path - colon cancer, node neg, but fistula margin + stable, OOB/PT decr IVF leave huitron wound opened Alen Parikh MD Oct 22, 2016 17:08
[2016-10-22 20:00] VITALS: BP 135/61; PULSE 90; RESP 19; TEMP 97.8; O2SAT 92
[2016-10-22] MEDS: VERAPAMIL HCL 240 MG SUSTAINED RELEASE TAB PO SCH (20:18)
[2016-10-23] VITALS: BP 136/60; PULSE 83; RESP 19; TEMP 98.2; O2SAT 92
[2016-10-23] MEDS: MEDIUM DOSE INSULIN NOVOLIN REGULAR SUPPLEMENTAL SCALE SQ SCH ×4 (04:47→19:36)
[2016-10-23] MEDS: PCA - TOTAL MG MORPHINE DELIVERED PER SHIFT SCH (04:47)
[2016-10-23] MEDS: METOCLOPRAMIDE HCL 10 MG/2 ML VIAL IVS SCH ×3 (04:49→23:05)
[2016-10-23 08:00] VITALS: BP 122/61; PULSE 73; RESP 19; TEMP 96.9; O2SAT 98
[2016-10-23] MEDS: PANTOPRAZOLE SODIUM 40 MG VIAL IVP SCH (09:00)
[2016-10-23] MEDS: SODIUM CHLORIDE 0.9% FLUSH 5 ML FLUSH IVF SCH ×2 (09:00→19:33)
[2016-10-23] MEDS: ALVIMOPAN 12 MG CAPSULE - Post-op dosing PO SCH ×2 (09:13→19:33)
[2016-10-23] MEDS: CYCLOBENZAPRINE HCL 10 MG TAB PO SCH ×2 (09:14→19:33)
[2016-10-23] MEDS: BETHANECHOL CHL 25 MG TAB PO SCH ×2 (09:15→19:34)
[2016-10-23] MEDS: NITROFURANTOIN MONOHYD MACROCR 100 MG CAP PO SCH ×2 (09:15→19:34)
[2016-10-23] MEDS: LOSARTAN 50 MG TAB PO SCH (09:16)
[2016-10-23] MEDS: PANTOPRAZOLE SOD 40 MG DELAYED RELEASE TAB PO SCH (09:16)
[2016-10-23] MEDS: ALLOPURINOL 100 MG TAB PO SCH (09:16)
[2016-10-23] MEDS: OXYBUTYNIN CHLORIDE 5 MG TAB PO SCH ×2 (09:18→19:33)
[2016-10-23] MEDS: ERTAPENEM INJ 1,000 MG in SODIUM CHLORIDE 0.9% INJ 100 ML IV SCH (09:24)
[2016-10-23] MEDS: SODIUM CHLOR 0.45% 1000 ML INJ 1,000 ML IV SCH ×2 (09:27→23:05)
--- NOTE | 2016-10-23 10:56 | HHI.PR ---
Subjective Remarks C/R Surg POD # 4 afebrile, VSS UO good stoma viable, min function JASON min Objective - Vital Signs Date Time Temp Pulse Resp B/P Pulse Ox O2 Delivery O2 Flow Rate FiO2 10/23/16 08:00 96.9 73 19 122/61 98 10/21/16 12:08 21 10/20/16 17:40 Nasal Cannula 2 Result Diagram: 10/21/16 0453 10/21/16 0913 Objective Remarks PE alert, less nausea, to PO Abd - soft, wound opened, clean base A/P Assessment and Plan Imp: path - colon cancer, node neg, but fistula margin + stable, OOB/PT decr IVF leave huitron wound opened, local care irrigate stoma Alen Parikh MD Oct 23, 2016 10:56
[2016-10-23 11:30] LABS: AUTOMATED NEUTROPHIL # 2.4 TH/MM3 (1.8-7.7); BASOPHIL % 0.1 % (0.0-2.0); EOSINOPHIL # 0.1 TH/MM3 (0-0.4); EOSINOPHIL % 1.7 % (0.0-4.0); HEMATOCRIT 26.1 % (35.0-46.0); LYMPH % 12.8 % (9.0-44.0); LYMPHOCYTE # 0.5 TH/MM3 (1.0-4.8); MEAN CELL VOLUME 85.8 FL (80.0-100.0); MEAN CORPUSCULAR HEMOGLOBIN 27.5 PG (27.0-34.0); MEAN CORPUSCULAR HGB CONC 32.1 % (32.0-36.0); MONO % 18.4 % (0.0-8.0); PLATELET COUNT 128 TH/MM3 (150-450); RED BLOOD COUNT 3.05 MIL/MM3 (4.00-5.30); RED CELL DISTRIBUTION WIDTH 18.2 % (11.6-17.2); WHITE BLOOD COUNT 3.6 TH/MM3 (4.0-11.0)
[2016-10-23 11:33] LABS: HEMO FLAGS AUTO DIFF
[2016-10-23 12:00] VITALS: BP 142/63; PULSE 68; RESP 17; TEMP 97.4; O2SAT 93
[2016-10-23 12:06] LABS: BANDS 1 % (0-6); MYELOCYTES 1 % (0-0); NEUTROPHIL # MANUAL DIFF 2.4 TH/MM3 (1.8-7.7); POLYS (SEG NEUTROPHILS) 64 % (16-70); WBC DIFF SAMPLE 100
[2016-10-23 12:07] LABS: PLATELET ESTIMATE SMEAR LOW (NORMAL); PLATELET MORPHOLOGY NORMAL (NORMAL); SCAN/DIFF FINAL DIFF MANUAL
[2016-10-23 13:18] LABS: BACTERIA, URINE RARE /hpf; BLOOD, URINE SMALL (NEG); GLUCOSE,URINE NEG (NEG); KETONE, URINE NEG (NEG); MUCUS URINE FEW /lpf (OCC); NITRITE,URINE NEG (NEG); SQUAMOUS EPITHELIAL CELL URINE <1 /hpf (0-5); URINE COLOR YELLOW (YELLW/STRAW)
[2016-10-23 13:19] LABS: COMMENT (UR) CATH-CULTURE IND; CULTURE IF INDICATED CATH CULTURE IND
[2016-10-23 16:00] VITALS: BP 138/63; PULSE 70; RESP 20; TEMP 97.9; O2SAT 100
[2016-10-23] MEDS: ACETAMINOPHEN/HYDROcodone 325 MG/5 MG TAB PO PRN (17:00)
[2016-10-23] MEDS: VERAPAMIL HCL 240 MG SUSTAINED RELEASE TAB PO SCH (19:34)
[2016-10-23 20:00] VITALS: BP 159/70; PULSE 73; RESP 18; TEMP 96.9; O2SAT 99
[2016-10-24] VITALS: BP 138/62; PULSE 77; RESP 20; TEMP 97.4; O2SAT 96
[2016-10-24] MEDS: ACETAMINOPHEN/HYDROcodone 325 MG/5 MG TAB PO PRN ×2 (04:44→09:00)
[2016-10-24] MEDS: MEDIUM DOSE INSULIN NOVOLIN REGULAR SUPPLEMENTAL SCALE SQ SCH ×4 (04:44→21:00)
[2016-10-24] MEDS: METOCLOPRAMIDE HCL 10 MG/2 ML VIAL IVS SCH ×3 (04:44→21:30)
[2016-10-24 08:00] VITALS: BP 122/56; PULSE 70; RESP 16; TEMP 97.5; O2SAT 96
[2016-10-24] MEDS: PANTOPRAZOLE SOD 40 MG DELAYED RELEASE TAB PO SCH (08:57)
[2016-10-24] MEDS: ALVIMOPAN 12 MG CAPSULE - Post-op dosing PO SCH ×2 (08:58→21:29)
[2016-10-24] MEDS: CYCLOBENZAPRINE HCL 10 MG TAB PO SCH ×2 (08:58→21:30)
[2016-10-24] MEDS: NITROFURANTOIN MONOHYD MACROCR 100 MG CAP PO SCH ×2 (08:58→21:29)
[2016-10-24] MEDS: ALLOPURINOL 100 MG TAB PO SCH (08:59)
[2016-10-24] MEDS: OXYBUTYNIN CHLORIDE 5 MG TAB PO SCH ×2 (08:59→21:29)
[2016-10-24] MEDS: LOSARTAN 50 MG TAB PO SCH (08:59)
[2016-10-24] MEDS: SODIUM CHLORIDE 0.9% FLUSH 5 ML FLUSH IVF SCH ×2 (09:00→21:30)
[2016-10-24] MEDS: PANTOPRAZOLE SODIUM 40 MG VIAL IVP SCH (09:00)
[2016-10-24] MEDS: BETHANECHOL CHL 25 MG TAB PO SCH ×2 (09:00→21:30)
[2016-10-24] MEDS: ERTAPENEM INJ 1,000 MG in SODIUM CHLORIDE 0.9% INJ 100 ML IV SCH (09:02)
[2016-10-24 12:00] VITALS: BP 117/47; PULSE 74; RESP 17; TEMP 97.8; O2SAT 94
[2016-10-24] MEDS: POLYETHYLENE GLYCOL 17 GM PKG PO SCH (12:38)
[2016-10-24 16:00] VITALS: BP 134/61; PULSE 70; RESP 16; TEMP 97.1; O2SAT 92
[2016-10-24] MEDS: SODIUM CHLOR 0.45% 1000 ML INJ 1,000 ML IV SCH (18:22)
[2016-10-24 20:00] VITALS: BP 133/49; PULSE 80; RESP 20; TEMP 97.9; O2SAT 96
--- NOTE | 2016-10-24 20:48 | HHI.PR ---
Subjective Remarks C/R Surg POD afebrile, VSS UO good stoma viable, min function JASON min, dc'd Objective - Vital Signs Date Time Temp Pulse Resp B/P Pulse Ox O2 Delivery O2 Flow Rate FiO2 10/24/16 16:00 97.1 70 16 134/61 92 10/24/16 09:00 Nasal Cannula 3.00 10/21/16 12:08 21 Result Diagram: 10/23/16 1111 10/21/16 0913 Objective Remarks PE alert, jacky PO Abd - soft, wound opened, clean base stoma irrigated A/P Assessment and Plan Imp: stable, OOB/PT decr IVF leave huitron wound opened, local care irrigate stoma Alen Parikh MD Oct 24, 2016 20:48
[2016-10-24] MEDS: VERAPAMIL HCL 240 MG SUSTAINED RELEASE TAB PO SCH (21:30)
[2016-10-25] VITALS: BP 113/63; PULSE 68; RESP 20; TEMP 97.4; O2SAT 97
[2016-10-25] MEDS: SODIUM CHLOR 0.45% 1000 ML INJ 1,000 ML IV SCH ×2 (05:13→17:33)
[2016-10-25] MEDS: MEDIUM DOSE INSULIN NOVOLIN REGULAR SUPPLEMENTAL SCALE SQ SCH ×4 (05:13→21:00)
[2016-10-25] MEDS: METOCLOPRAMIDE HCL 10 MG/2 ML VIAL IVS SCH ×2 (05:13→14:56)
[2016-10-25 08:00] VITALS: BP 143/65; PULSE 71; RESP 17; TEMP 97.4; O2SAT 95
[2016-10-25] MEDS: PANTOPRAZOLE SODIUM 40 MG VIAL IVP SCH (09:00)
[2016-10-25] MEDS: NITROFURANTOIN MONOHYD MACROCR 100 MG CAP PO SCH ×2 (09:50→21:48)
[2016-10-25] MEDS: PANTOPRAZOLE SOD 40 MG DELAYED RELEASE TAB PO SCH (09:50)
[2016-10-25] MEDS: ALVIMOPAN 12 MG CAPSULE - Post-op dosing PO SCH ×2 (09:50→21:49)
[2016-10-25] MEDS: BETHANECHOL CHL 25 MG TAB PO SCH ×2 (09:50→21:49)
[2016-10-25] MEDS: POLYETHYLENE GLYCOL 17 GM PKG PO SCH (09:50)
[2016-10-25] MEDS: LOSARTAN 50 MG TAB PO SCH (09:50)
[2016-10-25] MEDS: OXYBUTYNIN CHLORIDE 5 MG TAB PO SCH ×2 (09:50→21:49)
[2016-10-25] MEDS: CYCLOBENZAPRINE HCL 10 MG TAB PO SCH ×2 (09:50→21:48)
[2016-10-25] MEDS: SODIUM CHLORIDE 0.9% FLUSH 5 ML FLUSH IVF SCH ×2 (09:51→21:00)
[2016-10-25] MEDS: ALLOPURINOL 100 MG TAB PO SCH (09:51)
[2016-10-25 12:00] VITALS: BP 122/41; PULSE 72; RESP 20; TEMP 98.4; O2SAT 95
[2016-10-25 16:00] VITALS: BP 137/62; PULSE 71; RESP 18; TEMP 98.2; O2SAT 95
[2016-10-25] MEDS: ACETAMINOPHEN/HYDROcodone 325 MG/5 MG TAB PO PRN (16:09)
[2016-10-25] MEDS ORDERED: METOCLOPRAMIDE HCL 10 MG/2 ML VIAL IVS PRN (16:45)
[2016-10-25 20:00] VITALS: BP 139/61; PULSE 73; RESP 18; TEMP 97.2; O2SAT 98
--- NOTE | 2016-10-25 20:13 | HHI.PR ---
Subjective Remarks C/R Surg POD afebrile, VSS UO good stoma viable, irrigated Objective - Vital Signs Date Time Temp Pulse Resp B/P Pulse Ox O2 Delivery O2 Flow Rate FiO2 10/25/16 16:00 98.2 71 18 137/62 95 10/24/16 22:32 Nasal Cannula 2.00 10/21/16 12:08 21 Result Diagram: 10/23/16 1111 10/21/16 0913 Objective Remarks PE alert, jacky PO Abd - soft, wound opened, clean base stoma little output A/P Assessment and Plan Imp: stable, OOB/PT decr IVF DC huitron in AM wound opened, local care irrigate stoma prn Alen Parikh MD Oct 25, 2016 20:13
[2016-10-25] MEDS: VERAPAMIL HCL 240 MG SUSTAINED RELEASE TAB PO SCH (21:49)
[2016-10-26] VITALS: BP 126/58; PULSE 75; RESP 16; TEMP 96; O2SAT 98
[2016-10-26] MEDS: SODIUM CHLOR 0.45% 1000 ML INJ 1,000 ML IV SCH (03:48)
[2016-10-26] MEDS: MEDIUM DOSE INSULIN NOVOLIN REGULAR SUPPLEMENTAL SCALE SQ SCH ×4 (07:00→20:46)
[2016-10-26 08:00] VITALS: BP 134/64; PULSE 69; RESP 18; TEMP 98; O2SAT 97
[2016-10-26] MEDS: BETHANECHOL CHL 25 MG TAB PO SCH ×2 (08:50→19:49)
[2016-10-26] MEDS: ALVIMOPAN 12 MG CAPSULE - Post-op dosing PO SCH ×2 (08:50→19:49)
[2016-10-26] MEDS: POLYETHYLENE GLYCOL 17 GM PKG PO SCH (08:50)
[2016-10-26] MEDS: OXYBUTYNIN CHLORIDE 5 MG TAB PO SCH ×2 (08:50→19:49)
[2016-10-26] MEDS: CYCLOBENZAPRINE HCL 10 MG TAB PO SCH ×2 (08:50→19:49)
[2016-10-26] MEDS: PANTOPRAZOLE SOD 40 MG DELAYED RELEASE TAB PO SCH (08:50)
[2016-10-26] MEDS: NITROFURANTOIN MONOHYD MACROCR 100 MG CAP PO SCH ×2 (08:50→19:49)
[2016-10-26] MEDS: LOSARTAN 50 MG TAB PO SCH (08:50)
[2016-10-26] MEDS: ALLOPURINOL 100 MG TAB PO SCH (08:50)
[2016-10-26] MEDS: PANTOPRAZOLE SODIUM 40 MG VIAL IVP SCH (08:50)
[2016-10-26] MEDS: SODIUM CHLORIDE 0.9% FLUSH 5 ML FLUSH IVF SCH ×2 (08:50→19:50)
[2016-10-26] MEDS: ACETAMINOPHEN/HYDROcodone 325 MG/5 MG TAB PO PRN (14:46)
[2016-10-26] MEDS: VERAPAMIL HCL 240 MG SUSTAINED RELEASE TAB PO SCH (19:49)
[2016-10-26 20:00] VITALS: BP 120/56; PULSE 104; RESP 18; TEMP 96.3; O2SAT 92
--- NOTE | 2016-10-26 23:14 | HHI.PR ---
Subjective Remarks C/R Surg POD afebrile, VSS UO good stoma viable, irrigated, not much output Objective - Vital Signs Date Time Temp Pulse Resp B/P Pulse Ox O2 Delivery O2 Flow Rate FiO2 10/26/16 20:00 96.3 104 18 120/56 92 10/25/16 21:43 Nasal Cannula 2.00 Result Diagram: 10/23/16 1111 Objective Remarks PE alert, jacky PO Abd - soft, wound opened, clean base stoma little output, +flatus A/P Assessment and Plan Imp: stable, OOB/PT decr IVF wound opened, local care irrigate stoma prn dc PLANS Alen Parikh MD Oct 26, 2016 23:14
[2016-10-26 23:50] VITALS: BP 127/61; PULSE 74; RESP 18; TEMP 97.4; O2SAT 92
[2016-10-27] MEDS: ACETAMINOPHEN/HYDROcodone 325 MG/5 MG TAB PO PRN (00:31)
[2016-10-27] MEDS: MEDIUM DOSE INSULIN NOVOLIN REGULAR SUPPLEMENTAL SCALE SQ SCH ×4 (07:00→19:46)
[2016-10-27] MEDS: PANTOPRAZOLE SODIUM 40 MG VIAL IVP SCH (09:00)
[2016-10-27 09:09] VITALS: BP 132/57; PULSE 80; RESP 20; TEMP 97.4; O2SAT 97
[2016-10-27] MEDS: OXYBUTYNIN CHLORIDE 5 MG TAB PO SCH ×2 (09:58→19:43)
[2016-10-27] MEDS: ALLOPURINOL 100 MG TAB PO SCH (09:59)
[2016-10-27] MEDS: NITROFURANTOIN MONOHYD MACROCR 100 MG CAP PO SCH ×2 (09:59→19:44)
[2016-10-27] MEDS: CYCLOBENZAPRINE HCL 10 MG TAB PO SCH ×2 (09:59→19:44)
[2016-10-27] MEDS: LOSARTAN 50 MG TAB PO SCH (09:59)
[2016-10-27] MEDS: PANTOPRAZOLE SOD 40 MG DELAYED RELEASE TAB PO SCH (09:59)
[2016-10-27] MEDS: BETHANECHOL CHL 25 MG TAB PO SCH ×2 (09:59→19:44)
[2016-10-27] MEDS: SODIUM CHLORIDE 0.9% FLUSH 5 ML FLUSH IVF SCH ×2 (10:00→19:45)
[2016-10-27] MEDS: POLYETHYLENE GLYCOL 17 GM PKG PO SCH (10:00)
[2016-10-27] MEDS: SODIUM CHLOR 0.45% 1000 ML INJ 1,000 ML IV SCH ×2 (10:01→23:45)
[2016-10-27 11:30] VITALS: BP 137/59; PULSE 85; RESP 24; TEMP 98.7; O2SAT 92
[2016-10-27] MEDS ORDERED: DIATRIZOATE MEGLUM/DIATRIZOATE SOD 120 ML BTL (for RAD DIAG) TUBE ONE (14:30)
[2016-10-27 16:00] VITALS: BP 149/72; PULSE 87; RESP 19; TEMP 96.7; O2SAT 93
--- NOTE | 2016-10-27 16:29 | RADRPT ---
EXAM DATE/TIME: 10/27/2016 14:42 [facility] COMPARISON: CT ABDOMEN & PELVIS W/O CONTRAST, August 14, 2016, 3:47. GASTROGRAFIN ENEMA, October 27, 2016, 13 :55. INDICATIONS : Evaluate colostomy. ORAL CONTRAST: No oral contrast ingested. RADIATION DOSE: 11.38 CTDIvol (mGy) MEDICAL HISTORY : Renal cell carcinoma. Diabetes mellitus type 2. Hypertension. SURGICAL HISTORY : Umbilical hernia repair. Colostomy.Nephrectomy, left.Appendectomy, tubal ligation. ENCOUNTER: Initial ACUITY: 1 day PAIN SCALE: 5/10 LOCATION: abdomen. TECHNIQUE: Volumetric scanning of the abdomen and pelvis was performed. Using automated exposure control and ad justment of the mA and/or kV according to patient size, radiation dose was kept as low as reasonably achievable to obtain optimal diagnostic quality images. FINDINGS: Examination was performed after colostomy Gastrografin examination. There is noted the retrograde liliana ling of the left colon, descending colon to the splenic flexure and the hepatic flexure marked amount of stool in the right colon with no evidence of bowel obstruction. Patient has developed a small pos terior right pleural effusion. In the subcutaneous tissues of the left anterior pelvic colostomy ther e is a nonspecific fluid collection which was not present subcutaneously on the prior examination. Th e small bowel is not protruding into the colostomy site on this study CONCLUSION: Contrast in the left colon and transverse colon from Gastrografin study prior to this exam. No eviden ce of obstruction or free air. Patient has developed a small right posterior pleural effusion. Additionally there is fluid in the subcutaneous region of the colostomy site around the si te new relative to the prior CT scan. Small bowel is not noted herniating into the colostomy site. Fredy Chopra MD on October 27, 2016 at 16:24 Board Certified Radiologist. This report was verified electronically.
--- NOTE | 2016-10-27 16:30 | RADRPT ---
EXAM DATE/TIME: 10/27/2016 13:55 [facility] COMPARISON: No previous studies available for comparison. INDICATIONS : Evaluate obstruction of colostomy. FLUORO TIME: 4.9 minutes IMAGE COUNT: 7 CONTRAST: 1. [facility]view MEDICAL HISTORY : None. SURGICAL HISTORY : Colostomy. Colostomy 1 1/2 yrs ago. Post-op fistula, connected to bladder x 2 days hernia. ENCOUNTER: Subsequent ACUITY: 2 days PAIN SCORE: 8/10 LOCATION: Bilateral Abdomen/colostomy. FINDINGS: Under fluoroscopic guidance a Gastrografin enema was performed with free flow of contrast to the ceca l tip. Under fluoroscopic control there is filling of the majority of the left descending colon and across t o the hepatic flexure in a retrograde fashion with a moderate amount of stool within this. Right colo n has a marked amount of stool and is not filled with contrast and there is no evidence of dilated andrew wel or obstruction. Post evacuation radiographs are unremarkable. CONCLUSION: Gastrografin examination of colostomy with retrograde filling the left colon and transverse colon. No evidence of obstruction. Fredy Chopra MD on October 27, 2016 at 16:27 Board Certified Radiologist. This report was verified electronically.
[2016-10-27] MEDS: ACETAMINOPHEN 325 MG TAB PO PRN (17:53)
[2016-10-27] MEDS: VERAPAMIL HCL 240 MG SUSTAINED RELEASE TAB PO SCH (19:43)
[2016-10-27 20:00] VITALS: BP 129/59; PULSE 88; RESP 18; TEMP 97.8; O2SAT 94
--- NOTE | 2016-10-27 22:41 | HHI.PR ---
Subjective Remarks C/R Surg POD afebrile, VSS UO good stoma viable, irrigated, not much output - xray reviewed Objective - Vital Signs Date Time Temp Pulse Resp B/P Pulse Ox O2 Delivery O2 Flow Rate FiO2 10/27/16 20:00 97.8 88 18 129/59 94 10/25/16 21:43 Nasal Cannula 2.00 Result Diagram: 10/23/16 1111 Objective Remarks PE alert, jacky PO Abd - soft, wound opened, clean base stoma little output, +flatus A/P Assessment and Plan Imp: stable, OOB/PT wound opened, local care irrigate stoma prn dc PLANS - rehab Alen Parikh MD Oct 27, 2016 22:41
[2016-10-28] VITALS: BP 123/63; PULSE 78; RESP 18; TEMP 97.3; O2SAT 93
[2016-10-28] MEDS: MEDIUM DOSE INSULIN NOVOLIN REGULAR SUPPLEMENTAL SCALE SQ SCH ×4 (04:58→19:49)
[2016-10-28 08:00] VITALS: BP 137/63; PULSE 76; RESP 18; TEMP 97.9; O2SAT 95
[2016-10-28] MEDS: PANTOPRAZOLE SODIUM 40 MG VIAL IVP SCH (09:00)
[2016-10-28] MEDS: NITROFURANTOIN MONOHYD MACROCR 100 MG CAP PO SCH ×2 (09:42→19:44)
[2016-10-28] MEDS: ALLOPURINOL 100 MG TAB PO SCH (09:42)
[2016-10-28] MEDS: BETHANECHOL CHL 25 MG TAB PO SCH ×2 (09:42→19:44)
[2016-10-28] MEDS: SODIUM CHLORIDE 0.9% FLUSH 5 ML FLUSH IVF SCH ×2 (09:42→19:45)
[2016-10-28] MEDS: CYCLOBENZAPRINE HCL 10 MG TAB PO SCH ×2 (09:42→19:45)
[2016-10-28] MEDS: PANTOPRAZOLE SOD 40 MG DELAYED RELEASE TAB PO SCH (09:42)
[2016-10-28] MEDS: POLYETHYLENE GLYCOL 17 GM PKG PO SCH (09:42)
[2016-10-28] MEDS: LOSARTAN 50 MG TAB PO SCH (09:42)
[2016-10-28] MEDS: OXYBUTYNIN CHLORIDE 5 MG TAB PO SCH ×2 (09:42→19:44)
[2016-10-28] MEDS: ACETAMINOPHEN 325 MG TAB PO PRN ×2 (11:20→19:44)
[2016-10-28 12:00] VITALS: BP 148/67; PULSE 99; RESP 17; TEMP 96.9; O2SAT 93
[2016-10-28] MEDS: SODIUM CHLOR 0.45% 1000 ML INJ 1,000 ML IV SCH (12:44)
[2016-10-28 16:00] VITALS: BP 138/60; PULSE 87; RESP 18; TEMP 97.5; O2SAT 93
[2016-10-28] MEDS: VERAPAMIL HCL 240 MG SUSTAINED RELEASE TAB PO SCH (19:44)
[2016-10-28 20:00] VITALS: BP 119/58; PULSE 88; RESP 24; TEMP 97.7; O2SAT 99
--- NOTE | 2016-10-28 23:26 | HHI.PR ---
Subjective Remarks C/R Surg POD afebrile, VSS UO good stoma viable, irrigated, not much output - xray reviewed jacky PO Objective - Vital Signs Date Time Temp Pulse Resp B/P Pulse Ox O2 Delivery O2 Flow Rate FiO2 10/28/16 20:00 97.7 88 24 119/58 99 10/25/16 21:43 Nasal Cannula 2.00 Objective Remarks PE alert, jacky PO Abd - soft, wound opened, clean base stoma little output, +flatus A/P Assessment and Plan Imp: stable, OOB/PT wound opened, local care irrigate stoma prn dc PLANS - rehab Alen Parikh MD Oct 28, 2016 23:26
[2016-10-28] MEDS ORDERED: MAGNESIUM CITRATE SOLN 300 ML BTL PO ONE (23:30)
[2016-10-29] VITALS: BP 125/70; PULSE 78; RESP 22; TEMP 97.5; O2SAT 93
[2016-10-29] MEDS: ACETAMINOPHEN 325 MG TAB PO PRN ×2 (00:11→14:49)
[2016-10-29] MEDS: SODIUM CHLOR 0.45% 1000 ML INJ 1,000 ML IV SCH (02:25)
[2016-10-29] MEDS: MEDIUM DOSE INSULIN NOVOLIN REGULAR SUPPLEMENTAL SCALE SQ SCH ×2 (06:04→11:00)
[2016-10-29 08:39] VITALS: BP 108/55; PULSE 77; RESP 20; TEMP 97; O2SAT 93
[2016-10-29] MEDS: PANTOPRAZOLE SODIUM 40 MG VIAL IVP SCH (08:55)
[2016-10-29] MEDS: NITROFURANTOIN MONOHYD MACROCR 100 MG CAP PO SCH (08:58)
[2016-10-29] MEDS: OXYBUTYNIN CHLORIDE 5 MG TAB PO SCH (08:58)
[2016-10-29] MEDS: POLYETHYLENE GLYCOL 17 GM PKG PO SCH (08:58)
[2016-10-29] MEDS: PANTOPRAZOLE SOD 40 MG DELAYED RELEASE TAB PO SCH (08:58)
[2016-10-29] MEDS: BETHANECHOL CHL 25 MG TAB PO SCH (08:59)
[2016-10-29] MEDS: ALLOPURINOL 100 MG TAB PO SCH (08:59)
[2016-10-29] MEDS: LOSARTAN 50 MG TAB PO SCH (08:59)
[2016-10-29] MEDS: CYCLOBENZAPRINE HCL 10 MG TAB PO SCH (08:59)
[2016-10-29] MEDS: SODIUM CHLORIDE 0.9% FLUSH 5 ML FLUSH IVF SCH (09:00)
[2016-10-29 12:49] VITALS: BP 92/50; PULSE 84; RESP 20; TEMP 97.2; O2SAT 92
[2016-10-29] MEDS: ONDANSETRON HCL 4 MG/2 ML VIAL IV PRN (14:49)
--- NOTE | 2016-12-28 13:22 | MD ---
cc: TAMIKA SINGH M.D., MARIO THOMAS,FISH CEDEÑO ADMISSION DATE: 10/19/2016 DISCHARGE DATE: 10/29/2016 ADMISSION DIAGNOSIS Colovesical fistula, recurrent urosepsis. PROCEDURES 10/19/2016: 1. Cystoscopy and placement of ureteral stent 2. Exploratory laparotomy with proctosigmoidectomy, Rosemary pouch and omental flap. 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 STAGE T4, N0, M1 HISTORY OF PRESENT ILLNESS Ms. French is a 76-year-old female who been followed for while after resection of a kidney tumor. She has also been followed after the development of a colovesical fistula felt secondary to diverticular disease. The patient underwent a diverting colostomy, however, she has continued to have episodes of urosepsis. The patient has been seen by the oncology service for treatment of possible metastasis to the lungs which has not responded to chemotherapy. She presents at this time for separation of the colovesical fistula to prevent future episodes of urosepsis. Please refer to the history and physical for more complete past medical and surgical history. PERTINENT PHYSICAL This is a very pleasant heavy-set female in no acute distress. ABDOMEN: Very soft and doughy. Not distended. Multiple incisions are well-healed. Colostomy is pink and producing stool, very little tenderness. No pain. No obvious hernias. RECTAL: Exam revealed benign external canal. Digital exam revealed fair to good tone. No masses or tenderness. HOSPITAL COURSE After admission, the patient was taken to the operating room on October 19, 2016 at which point she underwent cystoscopy and ureteral stent placement. The undersigned then performed an exploratory laparotomy with proctosigmoidectomy and Rosemary pouch with resection of a colovesical fistula. She had the rectum stapled closed and the colostomy was left in place. She tolerated the procedure quite well. Postoperatively, she was stabilized in the intensive care unit. She began to have return of her intestinal function slowly and her diet was advanced accordingly. She did have slow function of her stoma and was required to irrigate the stoma which was done by patient Education service. The lower pole of the wound was left open due to the previous fistula and was treated with wet-to-dry dressings. She continued to gain some strength with physical therapy. Her wound was responding to local care. The patient was able to tolerate a gradually advancing diet and her IV fluids were tapered. Case management helped with assistance in discharge planning to a rehab facility. The patient was eating sufficiently and the wound was looking fairly healthy enough to consider transfer to the rehab center on October 29, 2016. Final pathology report did reveal an invasive moderately differentiated adenocarcinoma with mucinous features perforating through the bowel wall. Six lymph nodes were evaluated and found to be negative for cancer. Final stage was T4, N0, M0, possible lung metastasis. DISCHARGE INSTRUCTIONS The patient was discharged eating a regular diet. She was to continue ambulating with physical therapy to gain strength. Local wound care was to be continued with wet-to-dry dressings in the wound and good stomal care for colostomy pouching. The patient will be seen in the office in one to two weeks time for routine follow-up. Any problems prior to the scheduled office visit, she was instructed to call for more urgent attention. MD JULIO CESAR Tran/EL /8:14 PM /1:13 PM
== END 2016-10-29 15:54 | DRG 330 ==
LOC: HSDI 10-19 11:27 → N07B 10-20 18:00
PROVIDERS: ADMIT Colon & Rectal Surgery; ATTEND Colon & Rectal Surgery
PROC: 0DBP0ZZ Excision of Rectum, Open Approach (ICD-10-PCS; 2016-10-19)
PROC: 0D1L0Z4 Bypass Transverse Colon to Cutaneous, Open Approach (ICD-10-PCS; 2016-10-19)
PROC: 0JD80ZZ Extraction of Abdomen Subcutaneous Tissue and Fascia, Open Approach (ICD-10-PCS; 2016-10-19)
PROC: 0TJB8ZZ Inspection of Bladder, Via Natural or Artificial Opening Endoscopic (ICD-10-PCS; 2016-10-19)
PROC: 0T9680Z Drainage of Right Ureter with Drainage Device, Via Natural or Artificial Opening Endoscopic (ICD-10-PCS; 2016-10-19)
PROC: 0DTN0ZZ Resection of Sigmoid Colon, Open Approach (ICD-10-PCS; principal; 2016-10-19 14:18)
PROC: 0WQF0ZZ Repair Abdominal Wall, Open Approach (ICD-10-PCS; 2016-10-19 14:18)
DX: K63.2 Fistula of intestine (principal); N32.1 Vesicointestinal fistula; N18.4 Chronic kidney disease, stage 4 (severe); C79.9 Secondary malignant neoplasm of unspecified site; C18.7 Malignant neoplasm of sigmoid colon; E11.22 Type 2 diabetes mellitus with diabetic chronic kidney disease; K42.9 Umbilical hernia without obstruction or gangrene; I12.9 Hypertensive chronic kidney disease with stage 1 through stage 4 chronic kidney disease, or unspecified chronic kidney disease; J44.9 Chronic obstructive pulmonary disease, unspecified; E78.5 Hyperlipidemia, unspecified; K43.5 Parastomal hernia without obstruction or gangrene; K66.0 Peritoneal adhesions (postprocedural) (postinfection); E66.9 Obesity, unspecified; Z68.35 Body mass index [BMI] 35.0-35.9, adult; Z79.4 Long term (current) use of insulin; Z85.528 Personal history of other malignant neoplasm of kidney; Z87.891 Personal history of nicotine dependence; Z88.0 Allergy status to penicillin; Z88.2 Allergy status to sulfonamides; Z90.5 Acquired absence of kidney
CPT/HCPCS: 74176; 74270; 76937; 80048; 80053; 81001; 82378; 82948; 85007; 85025; 85027; 86850; 86900; 86901; 87077; 87086; 87186; 88307; 88309; 94150; C1769; C9113; J0131; J0690; J1170; J1335; J1815; J2250; J2270; J2405; J2710; J2765; J2930; J3010; J3480; J7042; J7120; Q9963

== ENCOUNTER → 2016-10-12 | Outpatient (CLI) | payer MEDICARE ==
[~2016-10-12] MED LIST changes: +CRANCAP2 PO; +CYCL1TAB29 PO; +HYDR-3533 PO; +LOSA50TA PO; +MACR100C3 PO; +MIRA33504 PO; +MONUPAK PO; +MUCU400T2 PO; +NORC5TAB PO; +OMEP20TA PO; +OXYC-395 PO; +PROM25TA5 PO
[2016-10-12 09:13] LABS: AUTOMATED NEUTROPHIL # 3.9 TH/MM3 (1.8-7.7); BASOPHIL % 0.1 % (0.0-2.0); EOSINOPHIL # 0.1 TH/MM3 (0-0.4); EOSINOPHIL % 1.1 % (0.0-4.0); HEMATOCRIT 42.1 % (35.0-46.0); HEMO FLAGS DIFF FINAL; LYMPH % 18.2 % (9.0-44.0); LYMPHOCYTE # 1.1 TH/MM3 (1.0-4.8); MEAN CELL VOLUME 86.2 FL (80.0-100.0); MEAN CORPUSCULAR HEMOGLOBIN 27.4 PG (27.0-34.0); MEAN CORPUSCULAR HGB CONC 31.8 % (32.0-36.0); MONO % 17.7 % (0.0-8.0); NEUT % 62.9 % (16.0-70.0); PLATELET COUNT 171 TH/MM3 (150-450); RED BLOOD COUNT 4.88 MIL/MM3 (4.00-5.30); RED CELL DISTRIBUTION WIDTH 18.5 % (11.6-17.2); WHITE BLOOD COUNT 6.3 TH/MM3 (4.0-11.0)
[2016-10-12 09:22] LABS: APTT (PATIENT) 31.4 SEC (24.3-30.1); INTERNATIONAL NORMALIZED RATIO 0.9 RATIO; PROTHROMBIN TIME - PATIENT 10.3 SEC (9.8-11.6)
[2016-10-12 09:39] LABS: ALKALINE PHOSPHATASE 130 U/L (45-117); ALT (GPT) 18 U/L (10-53); ANION GAP 10 MEQ/L (5-15); AST (GOT) 13 U/L (15-37); BICARBONATE 27.1 MEQ/L (21.0-32.0); BLOOD UREA NITROGEN 25 MG/DL (7-18); CHLORIDE 103 MEQ/L (98-107); GLOMERULAR FILTRATION RATE 23 ML/MIN (>89); GLUCOSE,FASTING 148 MG/DL (74-99); POTASSIUM 4.2 MEQ/L (3.5-5.1); SODIUM (NA) 140 MEQ/L (136-145); TOTAL BILIRUBIN ADULT 0.9 MG/DL (0.2-1.0)
--- NOTE | 2016-10-12 10:19 | RADRPT ---
EXAM DATE/TIME: 10/12/2016 09:59 [facility] COMPARISON: CHEST SINGLE AP, August 14, 2016, 5:41. CT THORAX W/O CONTRAST, October 22, 2015, 9:44. CHEST SI NGLE AP, September 25, 2016, 20:08. INDICATIONS : Evaluate for pneumonia, pneumothorax or communicable disease. Pre op for bladder fistula surgery 10-19 MEDICAL HISTORY : History of multiple pulmonary nodules. SURGICAL HISTORY : None. ENCOUNTER: Initial ACUITY: 1 day PAIN SCORE: 0/10 LOCATION: Bilateral chest FINDINGS: PA and lateral views of the chest demonstrate the lungs to be symmetrically aerated without evidence of infiltrate or effusion. The previously noted pulmonary nodule projected over the right upper lobe does not appear significant change. There is a small nodule again noted projected over left upper lob e. The cardiomediastinal contours are unremarkable. Osseous structures are intact. CONCLUSION: 1. No evidence of pneumonia. 2. Multiple pulmonary nodules again visualized. Nilesh Mancilla MD on October 12, 2016 at 10:12 Board Certified Radiologist. This report was verified electronically.
--- NOTE | 2016-10-12 17:59 | EKG ---
Date Performed: 10/12/2016 Time Performed: 08:54:08 PTAGE: 76 years EKG: Sinus rhythm WITH SINUS ARRHYTHMIA NONSPECIFIC T-WAVE ABNORMALITY Since previous tracing, no significant change n oted BORDERLINE ECG PREVIOUS TRACING : 08/14/2016 08.27 DOCTOR: Terence Drew Interpretating Date/Time 10/12/2016 17:59:16
== END ==
LOC: CPRE 08:12
PROVIDERS: ATTEND Colon & Rectal Surgery
DX: Z01.810 Encounter for preprocedural cardiovascular examination (principal); Z01.811 Encounter for preprocedural respiratory examination; Z01.812 Encounter for preprocedural laboratory examination; N32.1 Vesicointestinal fistula; R94.31 Abnormal electrocardiogram [ECG] [EKG]
CPT/HCPCS: 36415; 71020; 80053; 85025; 85610; 85730; 93005

== ENCOUNTER 2016-11-25 11:17 | Observation (INO) | payer OTHER, MEDICARE ==
[~2016-11-25] VITALS: Ht 165.1 cm; Wt 86.0 kg
[2016-11-25] VITALS (7 sets, daily range): BP systolic 132–167; BP diastolic 65–81; PULSE 89–100; RESP 16–20; TEMP 98–98.8; O2SAT 96–99
[~2016-11-25 11:17] MED LIST changes: -HYDR-3516 PO; -HYDR-3533 PO; -LISI-519 PO; -MACR100C3 PO; -MIRA33504 PO; -MONUPAK PO; -MUCU400T2 PO; -NORC5TAB PO; -OMEP20TA PO; -OXYC-395 PO; -PANT40TA3 PO; -PROM25TA5 PO
[2016-11-25] MEDS ORDERED: MORPHINE SULFATE 4 MG/ML INJ IV PUSH ONE (11:45)
[2016-11-25] MEDS ORDERED: SODIUM CHLORID 0.9% 500 ML INJ 500 ML IV ONE (11:45)
--- NOTE | 2016-11-25 12:20 | PD ---
HPI Chief Complaint: Abdominal Pain Time Seen by Provider: 11:32 Travel History International Travel<30 days: No Contact w/Intl Traveler<30days: No Traveled to known affect area: No History of Present Illness HPI This 76 year-old woman with a history of metastatic renal cell carcinoma who underwent nephrectomy in January 2015, develop metastatic lesions to the stomach liver and lungs, underwent colostomy in October of this year with Dr. Parikh, which is complicated by large ventral wound. This wound is been managed with wound VAC initially but she develop worsening sepsis, worsening necrosis, and the wound heart further debridement. The been managing of local wound care only. She got home from [facility] about a week or so ago. She presents back to the emergency department today after they went to change her wound today noticed copious amount of thin liquid stool coming from the top of the wound. She's had some abdominal discomfort. No other complaints. History Past Medical History Narrative Medical Metastatic renal cell carcinoma Large ventral wound Diabetes Doubt Menopausal: Yes Social History Alcohol Use: No Tobacco Use: No Allergies-Medications (Allergen,Severity, Reaction): Coded Allergies: Adhesives (Verified Allergy, Severe, Rash, 10/19/16) OK TO USE PAPER TAPE Latex (Verified Allergy, Severe, Itching, 10/19/16) Sulfa (Verified Allergy, Severe, Nausea/Vomiting, 10/19/16) Penicillin (Verified Allergy, Unknown, Hives, 10/19/16) *MDRO Multi-Drug Resistant Organism (Verified Adverse Reaction, Unknown, ) MRSA (urine) 05/2015 ESBL+E.Coli urine 11/2015, 06/10/16, 10/19/16 Reported Meds & Prescriptions Reported Meds & Active Scripts Active Ditropan (Oxybutynin Chloride) 5 Mg Tab 5 Mg PO Q12HR Reported Urecholine (Bethanechol Chloride) 25 Mg Tab 25 Mg PO BID Flexeril (Cyclobenzaprine HCl) 10 Mg Tab 10 Mg PO BID Cranberry Urinary Comfort (Vitamins C & E) 1 Cap 1 Cap PO DAILY Losartan (Losartan Potassium) 50 Mg Tab 50 Mg PO DAILY Novolin 70/30 Inj (Insulin Human Isoph/Insulin Regular) 1,000 Units/10 Ml Inj 62 Units SQ HS Novolin 70/30 Inj (Insulin Human Isoph/Insulin Regular) 1,000 Units/10 Ml Inj 60 Units SQ DAILYAC [inlyta] 5 Mg PO BID Ventolin Hfa 18 GM Inh (Albuterol Sulfate) 90 Mcg/Act Aer 2 Puff INH Q4-6H PRN Verapamil ER (Verapamil HCl) 120 Mg Tab 240 Mg PO HS Docusate Sodium 100 Mg Tab 100 Mg PO BID Allopurinol 100 Mg Tab 100 Mg PO DAILY Acetaminophen 500 Mg Tab 500 Mg PO BID Review of Systems Except as stated in HPI: all other systems reviewed are Neg Physical Exam Narrative GENERAL: Ill-appearing 76 year-old woman, uncomfortable. SKIN: Warm and dry. HEAD: Atraumatic. Normocephalic. CARDIOVASCULAR: Regular rate and rhythm. No murmur appreciated. RESPIRATORY: No accessory muscle use. Clear to auscultation. Breath sounds equal bilaterally. GASTROINTESTINAL: Abdomen is obese and soft. There is a very large ulcerated wound on the ventral abdomen with some necrotic fibrinous tissue on the anterior surface, measuring roughly 20 x 20 cm. The top of the wound there is pulsatile some thin liquid stool. There is also some sutures visible in the wound base. After cleaning, there is a discrete fistula gets appreciable in the superior aspect of the wound that is productive of a moderate amount of thin green liquid stool. The area is tender. In the skin is no surrounding erythema or redness. MUSCULOSKELETAL: No obvious deformities. No edema. NEUROLOGICAL: Awake and alert. No obvious cranial nerve deficits. Motor grossly within normal limits. Normal speech. Data Data Last Documented VS Vital Signs Date Time Temp Pulse Resp B/P Pulse Ox O2 Delivery O2 Flow Rate FiO2 11/25/16 11:42 98.8 91 20 167/81 96 Nasal Cannula 4 Orders Complete Blood Count With Diff (11/25/16 11:32) Comprehensive Metabolic Panel (11/25/16 11:32) Lactic Acid (11/25/16 11:32) Iv Access Insert/Monitor (11/25/16 11:32) Sodium Chlorid 0.9% 500 Ml Inj (Ns 500 M (11/25/16 11:45) Morphine Inj (Morphine Inj) (11/25/16 11:45) Consult Wound / Ostomy Nurse (11/25/16 ) Pouch Fistul 9.7x6.3 Sp Side (11/25/16 12:46) Clamp, Anna Pouch Clamp (11/25/16 12:46) Labs Laboratory Tests Test 11/25/16 12:00 White Blood Count 7.0 TH/MM3 Red Blood Count 3.81 MIL/MM3 Hemoglobin 10.5 GM/DL Hematocrit 32.5 % Mean Corpuscular Volume 85.4 FL Mean Corpuscular Hemoglobin 27.5 PG Mean Corpuscular Hemoglobin 32.2 % Concent Red Cell Distribution Width 18.9 % Platelet Count 148 TH/MM3 Mean Platelet Volume 9.1 FL Neutrophils (%) (Auto) 69.1 % Lymphocytes (%) (Auto) 11.8 % Monocytes (%) (Auto) 18.4 % Eosinophils (%) (Auto) 0.5 % Basophils (%) (Auto) 0.2 % Neutrophils # (Auto) 4.9 TH/MM3 Lymphocytes # (Auto) 0.8 TH/MM3 Monocytes # (Auto) 1.3 TH/MM3 Eosinophils # (Auto) 0.0 TH/MM3 Basophils # (Auto) 0.0 TH/MM3 CBC Comment DIFF FINAL Differential Comment Lactic Acid Level 1.3 mmol/L Total Bilirubin 0.8 MG/DL Alkaline Phosphatase 72 U/L Total Protein 8.1 GM/DL MDM Medical Decision Making Medical Screen Exam Complete: Yes Emergency Medical Condition: Yes Differential Diagnosis Fistula, dehiscence, ulceration, chronic wound, other Narrative Course Medical decision making INITIAL: Is a 76 year-old woman who has metastatic renal cell carcinoma, chronic ventral wound, and now has an obvious fistula to the wound base. Is productive of moderate amount of stool. I called and spoke to Dr. Parikh, who recommended that I speak with Aliya with ostomy care to evaluate for treatment options. We'll check labs, plan on admission to medicine, wound care consult, and reassess. I think this will take some time to find an appropriate fixable plan on admitting the patient for observation. Diagnosis Primary Impression: Colocutaneous fistula Johan Lyon MD Nov 25, 2016 12:20
[2016-11-25 12:29] LABS: AUTOMATED NEUTROPHIL # 4.9 TH/MM3 (1.8-7.7); BASOPHIL % 0.2 % (0.0-2.0); EOSINOPHIL % 0.5 % (0.0-4.0); HEMATOCRIT 32.5 % (35.0-46.0); HEMO FLAGS DIFF FINAL; LYMPH % 11.8 % (9.0-44.0); LYMPHOCYTE # 0.8 TH/MM3 (1.0-4.8); MEAN CELL VOLUME 85.4 FL (80.0-100.0); MEAN CORPUSCULAR HEMOGLOBIN 27.5 PG (27.0-34.0); MEAN CORPUSCULAR HGB CONC 32.2 % (32.0-36.0); MONO % 18.4 % (0.0-8.0); NEUT % 69.1 % (16.0-70.0); PLATELET COUNT 148 TH/MM3 (150-450); RED BLOOD COUNT 3.81 MIL/MM3 (4.00-5.30); RED CELL DISTRIBUTION WIDTH 18.9 % (11.6-17.2)
[2016-11-25 12:48] LABS: ALKALINE PHOSPHATASE 72 U/L (45-117); TOTAL BILIRUBIN ADULT 0.8 MG/DL (0.2-1.0)
[2016-11-25 13:22] LABS: ALT (GPT) 12 U/L (10-53); ANION GAP 7 MEQ/L (5-15); AST (GOT) 39 U/L (15-37); BICARBONATE 28.8 MEQ/L (21.0-32.0); BLOOD UREA NITROGEN 34 MG/DL (7-18); CHLORIDE 101 MEQ/L (98-107); GLOMERULAR FILTRATION RATE 43 ML/MIN (>89); SODIUM (NA) 137 MEQ/L (136-145)
[2016-11-25 13:25] LABS: POTASSIUM 5.2 MEQ/L (3.5-5.1)
--- NOTE | 2016-11-25 13:48 | HHI.HP ---
HPI Service Family Medicine Primary Care Physician Remy Cano MD Admission Diagnosis ventral fistula Diagnoses: Chief Complaint: Wound care International Travel<30 Days: No Contact w/Intl Traveler<30days: No Known Affected Area: No History of Present Illness 76 y/o female with history of metastatic renal cancer with mets presents with non-healing ventral wound. Daughter and granddaughter are present and provide some of the history. Pt was diagnosed in 2014 with metastatic renal cell carcinoma. Underwent colostomy and nephrectomy in 2014. Then in October 2016, underwent abdominal surgery with Dr. Parikh. [facility] Was there for 2 weeks. At that time, the janie became infected. they were removed the wound dehisced and never healed. Then, she was hospitalized for pneumonia and CHF at [facility]. She was released last week to hospice at home. This morning, noticed the stool coming out of the wound and brought her here. Pt complains of some abdominal pain and heel pain. (Aniket Zazueta MD R1) Review of Systems ROS Limitations: Clinical Condition, Poor Historian (Aniket Zazueta MD R1) Past Family Social History Past Medical History Renal cell carcinoma with mets to stomach, liver, lungs DM CHF Anxiety Aortic atherosclerosis Cataracts CKD stage III Gout HTN Hyperlipidemia Hyperthryoidism Obesity CVA Past Surgical History Colostomy Ventral hernia repair Reported Medications Reported Meds & Active Scripts Active Ditropan (Oxybutynin Chloride) 5 Mg Tab 5 Mg PO Q12HR Reported Urecholine (Bethanechol Chloride) 25 Mg Tab 25 Mg PO BID Flexeril (Cyclobenzaprine HCl) 10 Mg Tab 10 Mg PO BID Cranberry Urinary Comfort (Vitamins C & E) 1 Cap 1 Cap PO DAILY Losartan (Losartan Potassium) 50 Mg Tab 50 Mg PO DAILY Novolin 70/30 Inj (Insulin Human Isoph/Insulin Regular) 1,000 Units/10 Ml Inj 62 Units SQ HS Novolin 70/30 Inj (Insulin Human Isoph/Insulin Regular) 1,000 Units/10 Ml Inj 60 Units SQ DAILYAC [inlyta] 5 Mg PO BID Ventolin Hfa 18 GM Inh (Albuterol Sulfate) 90 Mcg/Act Aer 2 Puff INH Q4-6H PRN Verapamil ER (Verapamil HCl) 120 Mg Tab 240 Mg PO HS Docusate Sodium 100 Mg Tab 100 Mg PO BID Allopurinol 100 Mg Tab 100 Mg PO DAILY Acetaminophen 500 Mg Tab 500 Mg PO BID (Aniket Zazueta MD R1) Allergies: Coded Allergies: Adhesives (Verified Allergy, Severe, Rash, 10/19/16) OK TO USE PAPER TAPE Latex (Verified Allergy, Severe, Itching, 10/19/16) Sulfa (Verified Allergy, Severe, Nausea/Vomiting, 10/19/16) Penicillin (Verified Allergy, Unknown, Hives, 10/19/16) *MDRO Multi-Drug Resistant Organism (Verified Adverse Reaction, Unknown, ) MRSA (urine) 05/2015 ESBL+E.Coli urine 11/2015, 06/10/16, 10/19/16 Active Ordered Medications Active Medications Morphine Sulfate (Morphine Inj) 4 mg ONCE ONCE IV PUSH Last administered on 11:50; Admin Dose 4 MG; Start 11/25/16 at 11:45; Stop 11/25/16 at 11:46 ; Status DC Sodium Chloride (NS 500 ml Inj) 500 ml @ 1,000 mls/hr Q30M ONCE IV Last administered on 11/25/16 11:50; Admin Dose 1,000 MLS/HR; Start 11/25/16 at 11: 45; Stop 11/25/16 at 12:14; Status DC Family History Dementia Social History Tobacco - in the past Alcohol - unknown (Aniket Zazueta MD R1) Physical Exam Vital Signs Vital Signs Date Time Temp Pulse Resp B/P Pulse Ox O2 Delivery O2 Flow Rate FiO2 11/25/16 11:42 98.8 91 20 167/81 96 Nasal Cannula 4 11/25/16 11:40 98.8 91 20 167/81 96 Physical Exam GENERAL: This is a well-nourished, well-developed patient, lying in bed SKIN: Cool and dry. 2x2 cm blood blister with possible Stage 1 ulcer on left heel HEAD: Atraumatic. Normocephalic. EYES: Pupils equal round and reactive. Cataracts present ENT: Uvula midline. Airway patent. NECK: Trachea midline. No JVD or lymphadenopathy. Supple, nontender. CARDIOVASCULAR: Regular rate and rhythm without murmurs, gallops, or rubs. RESPIRATORY: Diminished breath sounds. Coarse and scattered wheezes. GASTROINTESTINAL: Abdomen obese and soft. Large, ulcerated wound on ventral abdomen. Necrotic tissue on lower wound. Fistula present on upper wound base that is productive of loose, brown stool. Tender. No surrounding erythema, swelling. MUSCULOSKELETAL: Extremities without clubbing, cyanosis, or edema. weak pulses NEUROLOGICAL: Awake and alert. Oriented to person and place, not time. Laboratory Laboratory Tests Test 11/25/16 12:00 White Blood Count 7.0 Red Blood Count 3.81 Hemoglobin 10.5 Hematocrit 32.5 Mean Corpuscular Volume 85.4 Mean Corpuscular Hemoglobin 27.5 Mean Corpuscular Hemoglobin 32.2 Concent Red Cell Distribution Width 18.9 Platelet Count 148 Mean Platelet Volume 9.1 Neutrophils (%) (Auto) 69.1 Lymphocytes (%) (Auto) 11.8 Monocytes (%) (Auto) 18.4 Eosinophils (%) (Auto) 0.5 Basophils (%) (Auto) 0.2 Neutrophils # (Auto) 4.9 Lymphocytes # (Auto) 0.8 Monocytes # (Auto) 1.3 Eosinophils # (Auto) 0.0 Basophils # (Auto) 0.0 CBC Comment DIFF FINAL Differential Comment Sodium Level 137 Potassium Level 5.2 Chloride Level 101 Carbon Dioxide Level 28.8 Anion Gap 7 Blood Urea Nitrogen 34 Creatinine 1.23 Estimat Glomerular Filtration 43 Rate Random Glucose 107 Lactic Acid Level 1.3 Calcium Level 8.9 Total Bilirubin 0.8 Aspartate Amino Transf 39 (AST/SGOT) Alanine Aminotransferase 12 (ALT/SGPT) Alkaline Phosphatase 72 Total Protein 8.1 Albumin 2.0 (Aniket Zazueta MD R1) Result Diagram: 11/25/16 1200 11/25/16 1200 Assessment and Plan Assessment and Plan 76 y/o female with history of metastatic renal carcinoma presents from hospice for management of large ventral wound. Will admit to observation for wound care and coordination with hospice for likely transfer to care facility and then home. Code Status Full Discussed Condition With Dr. Manuel (Aniket Zazueta MD R1) Assessment and Plan Anticipate transfer to hospice care center for wound management; pt. may not be able to be managed in the home, but family seems to thinks she could go home. Attending Attestation Patient seen and examined. Case reviewed and discussed with the resident team. Agree with plan of care as discussed with me and documented in the resident note. (Kelly Manuel MD) Problem List: (1) Open abdominal wall wound Status: Chronic Plan: History of open wound after infection from surgery in October [address] Parikh. Pt had been transferred to hospice at home last week from [facility]. The morning of admission, pt's daughter noticed stool coming from the wound and was brought to the ED. A fistula was found present on the upper part of the wound. ED physician discussed case with Dr. Parikh, who did not recommend any surgical intervention -Wound care consulted-appreciate recs -Dressing changes per wound team -Case management consult -Pt will most likely need transfer to hospice care facility for short period of time before back to home (2) Renal cell carcinoma Status: Chronic Plan: History of renal cell carcinoma with extensive mets. S/p left nephrectomy. Pt on hospice -See plan above (3) HTN (hypertension) Status: Chronic Plan: BP of 167/81 on admission. -Continue home meds of Losartan, Verapamil -Monitor vitals (4) DM2 (diabetes mellitus, type 2) Status: Chronic Plan: -Accuchecks & low dose SSI (5) FEN Status: Acute Plan: Fluids: None, tolerating PO Electrolytes: wnl, monitor Nutrition: Regular diet DVT ppx: SCDs GI ppx: none (Aniket Zazueta MD R1) Problem List: (1) Open abdominal wall wound Status: Chronic Plan: History of open wound after infection from surgery in October [address] Parikh. Pt had been transferred to hospice at home last week from [facility]. The morning of admission, pt's daughter noticed stool coming from the wound and was brought to the ED. A fistula was found present on the upper part of the wound. ED physician discussed case with Dr. Parikh, who did not recommend any surgical intervention -Wound care consulted-appreciate recs -Dressing changes per wound team -Case management consult -Pt will most likely need transfer to hospice care facility for short period of time before back to home (2) Renal cell carcinoma Status: Chronic Plan: History of renal cell carcinoma with extensive mets. S/p left nephrectomy. Pt on hospice -See plan above (3) HTN (hypertension) Status: Chronic Plan: BP of 167/81 on admission. -Continue home meds of Losartan, Verapamil -Monitor vitals (4) DM2 (diabetes mellitus, type 2) Status: Chronic Plan: -Accuchecks & low dose SSI (5) FEN Status: Acute Plan: Fluids: None, tolerating PO Electrolytes: wnl, monitor Nutrition: Regular diet DVT ppx: SCDs GI ppx: none (Kelly Manuel MD) Problem Qualifiers (1) Open abdominal wall wound: Qualified Code: S31.109A - Open abdominal wall wound, initial encounter (2) Renal cell carcinoma: Qualified Code: C64.2 - Renal cell carcinoma, left (3) HTN (hypertension): Qualified Code: I10 - Essential hypertension (4) DM2 (diabetes mellitus, type 2): Qualified Code: E11.8 - Type 2 diabetes mellitus with complication, with long- term current use of insulin Aniket Zazueta MD R1 Nov 25, 2016 13:48 Kelly Manuel MD Nov 25, 2016 16:22
[2016-11-25] MEDS ORDERED: SODIUM CHLORIDE 0.9% FLUSH 10 ML FLUSH IV FLUSH PRN (14:15)
[2016-11-25] MEDS ORDERED: ACETAMINOPHEN 325 MG TAB PO PRN (14:15)
[2016-11-25] MEDS ORDERED: DOCUSATE SODIUM 50 MG/SENNA 8.6 MG TAB PO PRN (14:15)
[2016-11-25] MEDS ORDERED: ONDANSETRON HCL 4 MG/2 ML VIAL IVP PRN (14:15)
[2016-11-25] MEDS ORDERED: ALBUTEROL SULFATE 90 MCG/ACT HFA 8 GM INHALER INH PRN (14:15)
[2016-11-25] MEDS ORDERED: NALOXONE HCL 0.4 MG/ML AMP IV PRN (14:15)
[2016-11-25] MEDS ORDERED: OXYC-395 PO (14:36)
[2016-11-25] MEDS ORDERED: NORC5TAB PO (14:36)
[2016-11-25] MEDS ORDERED: MUCU400T2 PO (14:36)
[2016-11-25] MEDS ORDERED: MIRA33504 PO (14:36)
[2016-11-25] MEDS ORDERED: OMEP20TA PO (14:36)
[2016-11-25] MEDS ORDERED: MONUPAK PO (14:36)
--- NOTE | 2016-11-25 15:13 | HHI.FPPN ---
Subjective Remarks 76 yo female with history of renal cell CA with metastases to lung and also with adenoca of stomach, [facility] after a hospitalization at [facility] for pneumonia after a stay at a local SNF. SHe has a history of colostomy placement at the time of nephrectomy for renal cancer. She had an abdominal surgical wound janie being infected and removed with resultant dehiscence of wound extensively in the SNF. Her abdominal wound is open and hospice has been changing her dressing daily for the past nearly one week. This a.m., the daughter noted she had a large bowel evacuation into her colostomy bag after a period of time of no stool. This was followed by a leakage of stool in the upper aspect of her wound. Pt. was brought to [facility] for care. She has a cough which is wet and stool leaks whenever she coughs. She states she is a full code. Daughter and grandaughter with her, her POA daughter was not present. Pt. with known diabetes mellitus. Has not been eating at home, only sips but no solids. See H&P for this admission for additional historical details. Pt. seen and examined and discussed with the wound care nurses and Dr. Pawan Zazueta. Objective Vitals Vital Signs Date Time Temp Pulse Resp B/P Pulse Ox O2 Delivery O2 Flow Rate FiO2 11/25/16 14:21 99 Nasal Cannula 4.00 11/25/16 11:42 98.8 91 20 167/81 96 Nasal Cannula 4 11/25/16 11:40 98.8 91 20 167/81 96 Result Diagram: 11/25/16 1200 11/25/16 1200 Other Results Laboratory Tests Test 11/25/16 12:00 Red Blood Count 3.81 MIL/MM3 Hemoglobin 10.5 GM/DL Hematocrit 32.5 % Red Cell Distribution Width 18.9 % Platelet Count 148 TH/MM3 Monocytes (%) (Auto) 18.4 % Lymphocytes # (Auto) 0.8 TH/MM3 Monocytes # (Auto) 1.3 TH/MM3 Potassium Level 5.2 MEQ/L Blood Urea Nitrogen 34 MG/DL Creatinine 1.23 MG/DL Estimat Glomerular Filtration 43 ML/MIN Rate Random Glucose 107 MG/DL Aspartate Amino Transf 39 U/L (AST/SGOT) Albumin 2.0 GM/DL Objective Remarks alert and responsive, edentulous, unaware of date, month, year. Head--normocephalic HEENT--conjunctivae and sclerae clear Heart--RRR Lungs--CTA anteriorly Abdomen--11 x 25 cm open wound abdomen wit stool leaking from upper aspect. lower wound shows necrotic tissue adherent. Extremities--feet cold, blood blister left heel, no drainage Family reports she has a dressing over her buttocks A/P Assessment and Plan 76 year old with large open wound abdomen with stool leaking into wound and necrotic tissue in lower aspect in the face of very poor nutritional state, metastatic renal CA to lung, adenoca of stomach. Wound care has seen and will establish a regimen to debride the necrotic tissue to assist with healing. Encourage nutritional supplements. Anticipate transfer to hospice care center tomorrow. Attending Attestation Patient seen and examined. Case reviewed and discussed with the resident team. Agree with plan of care as discussed with me and documented in the resident note. Kelly Manuel MD Nov 25, 2016 15:13
[2016-11-25] MEDS ORDERED: POLYETHYLENE GLYCOL 17 GM PKG PO PRN (15:15)
[2016-11-25] MEDS ORDERED: ACETAMINOPHEN/HYDROcodone 325 MG/5 MG TAB PO PRN (15:15)
[2016-11-25] MEDS ORDERED: DEXTROSE 50% IN WATER 50 ML VIAL(D50) IV PUSH PRN (16:00)
[2016-11-25] MEDS ORDERED: GLUCAGON 1 MG/ML VIAL OTHER PRN (16:00)
[2016-11-25] MEDS: INSULIN ASPART SUPPLEMENTAL SCALE SQ SCH ×2 (16:00→23:03)
[2016-11-25 17:12] LABS: BACTERIA, URINE RARE /hpf; BLOOD, URINE MOD (NEG); COMMENT (UR) CULTURE INDICATED; CULTURE IF INDICATED CULTURE INDICATED; GLUCOSE,URINE NEG (NEG); KETONE, URINE 10 mg/dL (NEG); NITRITE,URINE NEG (NEG); PH, URINE 5.5 (5.0-8.5); SQUAMOUS EPITHELIAL CELL URINE 3 /hpf (0-5); TRANSITIONAL EPI CELLS, URINE 1 /hpf; URIC ACID CRYSTALS, URINE RARE /hpf; URINE COLOR YELLOW (YELLW/STRAW)
[2016-11-25] MEDS ORDERED: LEVOFLOXACIN 750 MG PREMIX INJ 150 ML IV SCH (20:00)
[2016-11-25] MEDS ORDERED: BETHANECHOL CHL 25 MG TAB PO SCH (21:00)
[2016-11-25] MEDS ORDERED: INLYTA 5 MG PO SCH (21:00)
[2016-11-25] MEDS: SODIUM CHLORIDE 0.9% FLUSH 10 ML FLUSH IV FLUSH SCH (21:00)
[2016-11-25] MEDS ORDERED: INSULIN HUMAN NPH/R 70/30 1,000 UNITS/10 ML VIAL SQ SCH (21:00)
[2016-11-25] MEDS ORDERED: OXYBUTYNIN CHLORIDE 5 MG TAB PO SCH (21:00)
[2016-11-25] MEDS ORDERED: DOCUSATE SODIUM 100 MG CAP PO SCH (21:00)
[2016-11-25] MEDS ORDERED: VERAPAMIL HCL 120 MG SUSTAINED RELEASE TAB PO SCH (21:00)
[2016-11-25] MEDS ORDERED: ACETAMINOPHEN 500 MG CPLT PO SCH (21:00)
[2016-11-25] MEDS ORDERED: CYCLOBENZAPRINE HCL 10 MG TAB PO SCH (21:00)
[2016-11-25] MEDS: guaiFENesin E.R. 600 MG TAB PO SCH (22:43)
[2016-11-26] VITALS (7 sets, daily range): BP systolic 113–129; BP diastolic 57–60; PULSE 84–97; RESP 18; TEMP 97.8–98.9; O2SAT 91–97
[2016-11-26] MEDS: INSULIN ASPART SUPPLEMENTAL SCALE SQ SCH ×2 (07:00→13:10)
[2016-11-26] MEDS ORDERED: INSULIN HUMAN NPH/R 70/30 1,000 UNITS/10 ML VIAL SQ SCH (08:00)
[2016-11-26] MEDS ORDERED: LOSARTAN 50 MG TAB PO SCH (09:00)
[2016-11-26] MEDS: SODIUM CHLORIDE 0.9% FLUSH 10 ML FLUSH IV FLUSH SCH (09:00)
[2016-11-26] MEDS ORDERED: ALLOPURINOL 100 MG TAB PO SCH (09:00)
[2016-11-26] MEDS ORDERED: PANTOPRAZOLE SOD 20 MG DELAYED RELEASE TAB PO SCH (09:00)
[2016-11-26 09:07] LABS: AUTOMATED NEUTROPHIL # 4.2 TH/MM3 (1.8-7.7); BASOPHIL % 0.1 % (0.0-2.0); EOSINOPHIL % 0.5 % (0.0-4.0); HEMATOCRIT 28.2 % (35.0-46.0); HEMO FLAGS DIFF FINAL; LYMPH % 8.4 % (9.0-44.0); LYMPHOCYTE # 0.5 TH/MM3 (1.0-4.8); MEAN CELL VOLUME 84.4 FL (80.0-100.0); MEAN CORPUSCULAR HEMOGLOBIN 27.3 PG (27.0-34.0); MEAN CORPUSCULAR HGB CONC 32.4 % (32.0-36.0); MONO % 18.8 % (0.0-8.0); NEUT % 72.2 % (16.0-70.0); PLATELET COUNT 149 TH/MM3 (150-450); RED BLOOD COUNT 3.35 MIL/MM3 (4.00-5.30); RED CELL DISTRIBUTION WIDTH 18.2 % (11.6-17.2); WHITE BLOOD COUNT 5.9 TH/MM3 (4.0-11.0)
--- NOTE | 2016-11-26 09:42 | HHI.DCPOC ---
Discharge Care Plan Diagnosis: (1) Open abdominal wall wound (2) Colocutaneous fistula Goals to Promote Your Health * You will be discharged to hospice, who will assume care. Wound care recommendations as follow: GENTLY cleanse wound with NS and gauze. Apply NS moistened gauze to wound bed and cover with 4x4's and abd pad. Skin prep periwound with Protective Barrier Film (Cavilon spray or wipes ok) and secure dressing with PAPER TAPE as patient is allergic to other adhesive tapes. Directions to Meet Your Goals Take your medications as prescribed Follow your dietary instruction Follow activity as directed Keep your appointments as scheduled Take your immunizations and boosters as scheduled If your symptoms worsen call your PCP, if no PCP go to Urgent Care Center or Emergency Room Smoking is Dangerous to Your Health. Avoid second hand smoke Call the 24-hour hour crisis hotline for domestic abuse at Nadine Foley MD Nov 26, 2016 09:42
[2016-11-26] MEDS: guaiFENesin E.R. 600 MG TAB PO SCH (09:51)
[2016-11-26 10:02] LABS: BICARBONATE 28.7 MEQ/L (21.0-32.0); POTASSIUM 4.2 MEQ/L (3.5-5.1)
--- NOTE | 2016-11-26 14:34 | HHI.FPPN ---
Subjective Remarks Pt seen and examined this morning. Some abdominal discomfort, otherwise no complaints. Denies chest pain, SOB. (Aniket Zazueta MD R1) Objective Vitals Vital Signs Date Time Temp Pulse Resp B/P Pulse Ox O2 Delivery O2 Flow Rate FiO2 11/26/16 13:56 96 Nasal Cannula 2.00 11/26/16 11:27 93 122/60 11/26/16 08:53 97.8 84 18 129/58 97 11/26/16 07:48 98.9 85 18 126/60 96 11/26/16 04:17 98.9 90 18 129/58 91 11/26/16 01:15 98.6 86 18 113/57 91 11/25/16 21:45 89 11/25/16 20:48 95 18 139/78 11/25/16 17:02 100 11/25/16 15:22 98.0 92 16 132/65 96 (Aniket Zazueta MD R1) Result Diagram: 11/26/16 0844 11/26/16 0844 Objective Remarks Gen: alert and responsive Heart--RRR Lungs--CTA anteriorly Abdomen--11 x 25 cm open wound abdomen, dressing in place Extremities--feet cold, diminished pulses (Aniket Zazueta MD R1) A/P Assessment and Plan Anticipate transfer to hospice care center for wound management; pt. may not be able to be managed in the home, but family seems to thinks she could go home. Discharge Planning Today to hospice facility (Aniket Zazueta MD R1) Attending Attestation Patient seen and examined. Case reviewed and discussed with the resident team. Agree with plan of care as discussed with me and documented in the resident note. (Kelly Manuel MD) Problem List: (1) Open abdominal wall wound Status: Chronic Plan: History of open wound after infection from surgery in October [address] Parikh. Pt had been transferred to hospice at home last week from [facility]. The morning of admission, pt's daughter noticed stool coming from the wound and was brought to the ED. A fistula was found present on the upper part of the wound. ED physician discussed case with Dr. Parikh, who did not recommend any surgical intervention -Wound care consulted-appreciate recs -Treatment: Gently cleanse with NS -Lay oil emulsion to wound bed, avoiding fistula -Apply NS dampened gauze over wound and caover with abds, or other dry cover dressings -Change as needed. May replace gauze as needed and change out soiled parts only. Recommend complete change of dressing every day -Case management consult -Hospice aware of patient -Pt will most likely need transfer to hospice care facility for short period of time before back to home (2) Renal cell carcinoma Status: Chronic Plan: History of renal cell carcinoma with extensive mets. S/p left nephrectomy. Pt on hospice -See plan above (3) DM2 (diabetes mellitus, type 2) Status: Chronic Plan: -Accuchecks & low dose SSI (4) FEN Status: Acute Plan: Fluids: None, tolerating PO Electrolytes: wnl, monitor Nutrition: Regular diet DVT ppx: SCDs GI ppx: none (Aniket Zazueat MD R1) Problem Qualifiers (1) Open abdominal wall wound: Qualified Code: S31.109A - Open abdominal wall wound, initial encounter (2) Renal cell carcinoma: Qualified Code: C64.2 - Renal cell carcinoma, left (3) DM2 (diabetes mellitus, type 2): Qualified Code: E11.8 - Type 2 diabetes mellitus with complication, with long- term current use of insulin Aniket Zazueta MD R1 Nov 26, 2016 14:34 Kelly Manuel MD Nov 26, 2016 16:06
[2016-11-27] MEDS ORDERED: FOSFOMYCIN 3 GM PO SCH (09:00)
== END 2016-11-26 18:26 | disposition home or self-care (01) ==
LOC: NEPE 11:17 → NEDA 12:56 → NEPHCDU 15:18
PROVIDERS: ADMIT Family Medicine; ATTEND Family Medicine
DX: K63.2 Fistula of intestine (principal); K94.09 Other complications of colostomy; C78.02 Secondary malignant neoplasm of left lung; C78.01 Secondary malignant neoplasm of right lung; C78.7 Secondary malignant neoplasm of liver and intrahepatic bile duct; C78.89 Secondary malignant neoplasm of other digestive organs; I13.0 Hypertensive heart and chronic kidney disease with heart failure and stage 1 through stage 4 chronic kidney disease, or unspecified chronic kidney disease; E11.22 Type 2 diabetes mellitus with diabetic chronic kidney disease; I50.9 Heart failure, unspecified; N18.3 Chronic kidney disease, stage 3 (moderate); M10.9 Gout, unspecified; E78.5 Hyperlipidemia, unspecified; Z86.73 Personal history of transient ischemic attack (TIA), and cerebral infarction without residual deficits; E66.9 Obesity, unspecified; Z68.31 Body mass index [BMI] 31.0-31.9, adult; I70.0 Atherosclerosis of aorta; Z90.5 Acquired absence of kidney; Z85.528 Personal history of other malignant neoplasm of kidney; Y83.3 Surgical operation with formation of external stoma as the cause of abnormal reaction of the patient, or of later complication, without mention of misadventure at the time of the procedure
CPT/HCPCS: 80048; 80053; 81001; 82948; 83605; 85025; 87086; 96374; G0378; J1815; J1956; J2270; J7040